=== PATIENT | female | born 1950 | race Caucasian/White ===

== ENCOUNTER → 2017-09-11 11:26 | Outpatient (CLI) | payer MEDICARE, MEDICAID, SELFPAY ==
[2017-09-11 15:23] LABS: Lyme Ab Screen Interpretation REF LAB
[2017-09-15 10:17] LABS: Lyme Scn Total Ab w/Rflx <0.91 ISR (0.00-0.90)
== END ==
PROVIDERS: Family Provider Family Medicine; PCP Family Medicine; Visit Provider Family Medicine
DX: T14.8XXA Other injury of unspecified body region, initial encounter (principal); W57.XXXA Bitten or stung by nonvenomous insect and other nonvenomous arthropods, initial encounter; Y93.9 Activity, unspecified; Y92.9 Unspecified place or not applicable
CPT/HCPCS: 36415; 86618

== ENCOUNTER 2017-12-30 15:00 | Outpatient (RCR) | payer MEDICARE, MEDICAID, SELFPAY ==
--- NOTE | 2017-12-21 16:55 | HP.PTEVAL_ITS ---
Patient's Visit Information CAESAR YBARRA is a 67 year old F referred to Physical Therapy by Tyrese Leal with a diagnosis of Back pain. Date of Evaluation: 12/21/17 Physical Therapist: Michael Gilbert, PT, - Visit Plan Frequency: 2-3x /Week Duration: 4 Weeks Plan: Postural edu, NADIR for T/S, stab ex's, ube, and HEP - Subjective Subjective: Pt reports she has had mid back pain for several years. Pt reports her pain is intermittent in nature, but is beginning to become more constant. Pt denies any radiating pain at this time. Pt reports no sleep difficulty at this time. Pt reports prolonged standing increases her pain. 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 Prolonged sitting like driving to [employer], also increases her pain. Pt reports she performs HEP of bridging and cobras, which helps to decrease her pain. Pt has not had any recent Dx testing performed. 3/10 at rest, 7/10 at worst (I twisted wrong) - Pain Mid back Pain Intensity (Out of 10): 3 Pain Intensity Range: 7 - Objective Neuro: B UE and LE sensation is WNL to light touch. B pat and bicepital reflex= 2/3. T/S ROM: ext min limited. All other ranges are WNL. Palpation: sig muscle guarding throughout the T/S. No obcious deformity present. MMT: B UE and LE are 5/5 throughout. Repeated movements: RFIS 10x2 - Goals Goal 1:: Decrease T/S pain x 50% to aid with increasing tolerance for ambulation Goal Time Frame: 4-6 Weeks Goal 2:: Increase T/S ROM x 1 grade to aid with IADL's Goal Time Frame: 4-6 Weeks Goal 3:: I with HEP Goal Time Frame: 4-6 Weeks - Rehabilitation Potential Physical Therapy Diagnosis: Pt has mid back pain and limited ROM secondary to a T/S disc derrangement Rehabilitation Potential: Good - Anticipated Interventions Patient/Client Instruction: Educate patient on: Condition, Plan of Care For the Purpose of:: To improve self management Therapeutic Exercise to Include: Strength training, Endurance training, Body mechanics, Postural training, Tevin Exercises For the Purpose of:: To decrease pain, To increase ROM, To improve muscle performance and motor function IF ES: Yes For the Purpose of:: To decrease pain Thank you for the opportunity to evaluate your patient. For Medicare and Medicare HMO plans, please review the plan of care and approve it. It will need to be FAXED BACK to us at [phone] for Medicare purposes. Please let me know if there are questions or concerns regarding this plan of care. Physician Brent clemente: Date:
--- NOTE | 2018-03-31 14:49 | HP.PT.NRP ---
HP - Discharge Summary (1) - Patient Information CAESAR YBARRA was seen in my office for initial evaluation on 12/21/17. The following Plan of Care was established for this patient: Initial Frequency: 2-3x /Week Initial Duration: 4 Weeks - Anticipated Interventions Patient/Client Instruction: Educate patient on: Condition, Plan of Care For the Purpose of:: To improve self management Therapeutic Exercise to Include: Strength training, Endurance training, Body mechanics, Postural training, Tevin Exercises For the Purpose of:: To decrease pain, To increase ROM, To improve muscle performance and motor function IF ES: Yes For the Purpose of:: To decrease pain This patient was last seen in our office . Pertinent comments regarding their Physical therapy will appear below: Pt was treated for one followup PT visit for her LBP on the date of 12/30/17. Pt cancelled her remaining appointments secondary to a family concern, and has not returned through todays date. Pt is discontinued at this time At this point I will be discontinuing this patient from physical therapy. I would be happy to see this patient again in the future if found appropriate by the physician. Thank you! Michael Gilbert, PT, ATC
== END 2017-12-30 19:00 | disposition home or self-care (01) ==
LOC: PT 15:00
PROVIDERS: Family Provider Family Medicine; PCP Family Medicine; Visit Provider Family Medicine
DX: M54.6 Pain in thoracic spine (principal)
CPT/HCPCS: 97110; 97161

== ENCOUNTER → 2018-01-22 12:35 | Outpatient (CLI) | payer MEDICARE, MEDICAID, SELFPAY ==
--- NOTE | 2018-01-22 12:39 | RAD_ITS ---
STUDY: X-RAY - RIGHT KNEE REASON FOR EXAM: Female, 67 years old. Pain. TECHNIQUE: 4 view(s) of the knee. COMPARISON: None. FINDINGS: Normal visualized distal femur. Normal visualized proximal tibia and fibula. Normal proximal tibiofibular articulation. There is no demonstrated fracture. Normal medial femorotibial compartment. Normal lateral femorotibial compartment. Normal patellofemoral articulation. There is no demonstrated joint effusion. The soft tissue structures are unremarkable. RAD/Knee 4 or More Views IMPRESSION: Normal x-ray examination of the knee. Electronically Signed: Jeff Siu MD at 23:59 EST , Service support ,
--- NOTE | 2018-01-22 12:39 | RAD_ITS ---
STUDY: X-RAY - LEFT KNEE REASON FOR EXAM: Female, 67 years old. Pain, no injury TECHNIQUE: 4 view(s) of the knee. COMPARISON: None. FINDINGS: Normal visualized distal femur. Normal visualized proximal tibia and fibula. Normal proximal tibiofibular articulation. Normal medial femorotibial compartment. There is mild degenerative arthrosis of the lateral femorotibial compartment. Normal patellofemoral articulation. The soft tissue structures are unremarkable. RAD/Knee 4 or More Views IMPRESSION: Mild lateral compartment osteophytosis, otherwise unremarkable left knee Electronically Signed: Figueroa Robles DO at 16:36 EST Tel , Service support ,
== END ==
PROVIDERS: Family Provider Family Medicine; PCP Family Medicine; Referring Provider Family Medicine; Visit Provider Family Medicine
DX: M25.561 Pain in right knee (principal); M25.562 Pain in left knee
CPT/HCPCS: 73564

== ENCOUNTER → 2018-02-19 08:22 | Outpatient (CLI) | payer MEDICARE, MEDICAID, SELFPAY ==
[2018-02-19 10:12] LABS: Absolute Lymphocyte Count 1.57 X10^3/ul (0.83-4.51); Absolute Neutrophil Count 3.5 X10^3/uL (2.0-7.7); Basophil# 0.03 X10^3/uL; Basophil% 0.5 % (0-1); Eosinophil# 0.31 X10^3/uL; Eosinophils% 5.3 % (0-5); Hematocrit 38.2 % (37-47); Hemoglobin 12.5 g/dl (12.0-15.0); Lymphocyte # 1.57 X10^3/ul (4.0); Mean Corp Hgb Conc 32.7 g/gl (32-36); Mean Corpuscular Hgb 30.7 pg (27.0-32.0); Mean Corpuscular Volume 93.9 fL (81-99); Mean Platelet Vol. 10.3 fl (6.2-12.0); Monocyte# 0.43 X10^3/uL; Monocyte% 7.4 % (0-10); Neutrophil # 3.48 X10^3/uL (2.7-7.7); Neutrophil % 59.8 % (47-70); Platelet Count 230 K/mm3 (150-450); RBC Distribution Width CV 11.9 % (11.6-14.6); Red Blood Count 4.07 M/mm3 (4.2-5.4); White Blood Count 5.8 K/mm3 (4.4-11.0)
[2018-02-19 10:13] LABS: POSITIVE COUNT NO; POSITIVE DIFFERENTIAL NO; POSITIVE MORPHOLOGY NO
[2018-02-19 10:47] LABS: Vitamin D,25 Hydroxy 48.2 ng/mL (29.95-100.01)
[2018-02-19 10:50] LABS: ALB/GLOB Ratio 1.1 RATIO (0.9-2.4); AST(SGOT) 14 U/L (15-37); Alanine Aminotransfer ALT/SGPT 20 U/L (13-56); Albumin, Serum 3.5 g/dL (3.2-5.0); Alkaline Phosphatase 43 U/L (45-117); Anion Gap 7 (5-15); BUN 25 mg/dL (7-18); BUN/Creat Ratio 36.1 RATIO (10-20); Calcium,Total 8.4 mg/dL (8.5-10.1); Chloride 107 mmol/L (98-107); Cholesterol 261 mg/dL (200); Creatinine, Serum 0.69 mg/dL (0.55-1.02); EST Glomerular Filtration Rate 90 mL/min (>60); Est Glom Filt Rate - Afr Amer 109 mL/min (>60); Globulin 3.2 g/dL (2.2-4.2); Glucose 75 mg/dL (74-106); High Density Lipoprotein 73 mg/dL; Potassium 4.1 mmol/L (3.5-5.1); Protein, Total 6.7 g/dL (6.4-8.2); Sodium Level 143 mmol/L (136-145); Thyroid Stim Hormone (TSH) 2.53 uIU/mL (0.358-3.74); Triglycerides 66 mg/dL; Very Low Density Lipoprotein 13 mg/dL (5-40)
== END ==
PROVIDERS: Family Provider Family Medicine; PCP Family Medicine; Referring Provider Family Medicine; Visit Provider Family Medicine
DX: G40.109 Localization-related (focal) (partial) symptomatic epilepsy and epileptic syndromes with simple partial seizures, not intractable, without status epilepticus (principal); E78.00 Pure hypercholesterolemia, unspecified; R53.83 Other fatigue; E55.9 Vitamin D deficiency, unspecified
CPT/HCPCS: 36415; 80053; 80061; 82306; 84443; 85025

== ENCOUNTER 2018-06-21 12:30 | Outpatient (RCR) | payer MEDICARE, MEDICAID, SELFPAY ==
--- NOTE | 2018-05-03 15:07 | HP.PTEVAL_ITS ---
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 BACK PAIN.. Date of Evaluation: 05/03/18 Physical Therapist: Erlinda Samuels PT, Cert MDT - Visit Plan Frequency: 2-3x /Week Duration: 4-6 Weeks Plan: POSTURE CORRECTION/STRENGTHENING, INSTRUCTION IN APPROPRIATE BODY MECHANICS AND ACTIVITY MODIFICATIONS. DLS STARTING WITH A NEUTRAL SPINE PROGRESSING ROM TOLERATED. GHISLAINE LE ROM, STRETCHING AND STRENGTHENING. HEP INSTRUCTION. 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 PLAY GUITAR IN [employer] - ABOUT 2.5 HOURS. Disability: NOT CURRENTLY BUT WAS ON DISABILY STARTING IN APPROX 1995 AT AGE 45 FOR BRAIN TUMORS. Present symptoms: MID BACK, LOW BACK, GHISLAINE HIPS RIGHT > LEFT, GHISLAINE KNEE PAIN LEFT > RIGHT. PATIENT DENIES GHISLAINE LE NUMBNESS AND TINGLING. (PATIENT REPORTS SHE HAS AN ORDER FOR HER BACK PAIN TOO - FROM DR. EZEKIEL WALLIS - SEE [facility] EMR LAST EPISODE OF CARE). Present since: ABOUT 10 YEARS AGO. 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 Pain Scale: BACK: WORST 6/10, LEAST 0/10. LEFT KNEE: WORST 5/10, LEAST 1/10. Currently: BACK: 4/10, LEFT KNEE: 2/10. Commenced as a result of: BACK PAIN AND KNEE ARE GETTING WORSENING. Symptoms at onset: BACK. Worse: STANDING, LIFTING, BENDING OVER TO DRY HAIR, BABYSITTING 5 MONTH OLD, GOING UP AND DOWN STAIRS WITH LAUNDRY BASKET, PLAYING THE GUITAR - SITTING. Better: LYING DOWN ON BACK. BEING IN THE CAR. ARCHING BACKWARDS. Disturbed sleep: NO. Previous history/Previous treatment: PHYSICAL THERAPY A FEW VISITS FALL 2018. NO CHIROPRACTOR. NO BACK OR KNEE SURGERY. NO BACK OR KNEE INJECTIONS. Coughing/sneezing/straining: NO. Gait: PATIENT REPORTS HER RIGHT FOOT DOESN'T COME UP FAR THE LEFT AND IT DRAGS AND GETS WORSE WITH FATIGUE. NO ASSISTIVE DEVICES CURRENTLY. Difficulty initiating urinatin: NO. Accidents: NO. Unexplained weight loss: NO. Imaging: MILD DEGENERATIVE ORTHROSIS LAT COMPARTMENT FEM-TIB LEFT KNEE. RIGHT KNEE - NORMAL. RIGHT HIP AND PELVIS - NORMAL 2016. NO BACK IMAGING. PMH: BRAIN TUMORS - TWO SURGERYIES WITH MOST RECENT BEING IN 2000 - RESIDUAL RIGHT FOOT AND LEG WEAKNESS. ON SEIZURE MEDICATION. BREAST CA 2010 TREATED WITH LUMPECTOMY, CHEMO AND RADIATION. PLOF (Prior Level of Function): WAS ABLE TO GO UP AND DOWN STEPS WITHOUT FEELING LIKE FALLING. 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 - Objective Sitting/Standing Posture: POOR. Lordosis: NORMAL. Lateral shift: NO. Relevant shift: N/A. Active Correction of posture: BETTER. Other Observations: INDEP GAIT INTO PT WITH A MILD LIMP ON THE RIGHT LE. Motor deficit:RIGHT LE WEAKNESS COMPARED TO LEFT. RIGHT HIP 4-/5, RIGHT KNEE EXT 4- /5, RIGHT KNEE FLEX 4/5, RIGHT ANKLE 3-/5. LLE - 5/5 EXCEPT HIP 4/5. Sensory deficit: NO. ROM deficit: TIGHT GHISLAINE HS AND GASTROC SOLEUS COMPLEX'S RIGHT > LEFT. Reflexes: HYPER REFLEXIC RIGHT LE AND ABSENT LLE DTR'S. Dural Signs: NEGATIVE GHISLAINE LE'S. Lumbar mvmt loss: flex - NIL. ext - MIN. R SG - MIN. L SG - MIN - PROVOKES GHISLAINE SIDE PAIN. Core strength: POOR. Palpation: MILD TENDERNESS WITH PALPATION OF THE MID THORACIC AND L45S1 REGIONS. - Goals Goal 1:: DECREASE C/O BACK AND GHISLAINE LE SX'S. Goal Time Frame: 4-6 Weeks Goal 2:: IMPROVE LIFTING, STANDING, SOCIAL LIFE, LEISURE AND HOMEMAKING FUNCTION.. Goal Time Frame: 4-6 Weeks Goal 3:: INSTRUCT IN PROPHYLAXIS Goal Time Frame: 4-6 Weeks - Rehabilitation Potential Rehabilitation Potential: Fair - Anticipated Interventions Patient/Client Instruction: Educate patient on: Condition, Plan of Care, Risk F actors, Benefits of Fitness Program For the Purpose of:: To improve self management Therapeutic Exercise to Include: Strength training, Body mechanics, Postural training, Flexibilty training, Active ROM, Dynamic Lumbar Stabilization For the Purpose of:: To decrease pain, To increase ROM, To improve muscle performance and motor function, To increase tolerance to activity/condition/position, To improve ability of physical actions for home/community/work/leisure Ultrasound (thermal/non thermal): Yes For the Purpose of:: To decrease pain, To increase ROM, To improve nutrient delivery to tissue Thank you for the opportunity to evaluate your patient. For Medicare and Medicare HMO plans, please review the plan of care and approve it. It will need to be FAXED BACK to us at [phone] for Medicare purposes. For Medicare only, by signing this I certify the plan of care. Please let me know if there are questions or concerns regarding this plan of care. Physician Signature: ___Date:
--- NOTE | 2018-05-31 15:08 | HP.PTREVAL_ITS ---
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 BACK PAIN.. Please see the progress note below for an update on the physical therapy plan of care! Subjective: PATIENT REPORTS SHE HAS BEEN SICK WITH THE FLU BUT STARTING TO GET BETTER. HASN'T BEEN ABLE TO DO HEP BUT WAS ABLE TO TAKE A WALK. PATIENT REPORTS HER BACK AND LEG SX'S ARE BETTER ACTUALLY SINCE BEING LESS ACTIVE DUE TO ILLNESS. STATES SHE KNOWS A LOT BETTER NOW HOW TO MANAGE HER BACK AND LEG SX'S WITH PROPER POSTURE CONTROL, BODY MECHANICS AND EXERCISE. PATIENT REPORT THE US TREATMENT LAST VISIT HELPED A LOT AND WOULD LIKE TO HAVE IT AGAIN. Objective/Function: EASED BACK INTO SOME EX'S TODAY. PATIENT IS STILL RECOVERING FROM BEING SICK AND NOT DOING MUCH FOR THE LAST TWO WEEKS. BLOWING NOSE AND COUGHING DURING SESSION. TOLERATED LIGHT EX WELL AND REALLY LIKED THE US. UPON EXAM TODAY FINDINGS ARE SIMILAR TO SHASHI BUT SHE IS REPORTING IMPROVED STRENGTH AND DECREASED PAIN. SHE WAS ALSO TOLERATING PRE WELL UNTIL SHE GOT THE FLU. WOULD RECOMMEND CONTINUED PT 2-3 TIMES A WEEK X 7 MORE VISITS TO HELP MEET SET GOALS. Plan Plan: CONT PT 2-3 TIMES A WEEK X 7 MORE SESSIONS FOR US NEEDED, POSTURE CORRECTION/STRENGTHENING, INSTRUCTION IN APPROPRIATE BODY MECHANICS AND ACTIVITY MODIFICATIONS. DLS STARTING WITH A NEUTRAL SPINE PROGRESSING ROM TOLERATED. GHISLAINE LE ROM, STRETCHING AND STRENGTHENING. HEP INSTRUCTION. PATIENT IS AGREEABLE WITH THIS POC. Goals Goal 1:: DECREASE C/O BACK AND GHISLAINE LE SX'S. Goal Time Frame: 4-6 Weeks Goal Progress: Progressing Goal 2:: IMPROVE LIFTING, STANDING, SOCIAL LIFE, LEISURE AND HOMEMAKING FUNCTION.. Goal Time Frame: 4-6 Weeks Goal Progress: Progressing Goal 3:: INSTRUCT IN PROPHYLAXIS Goal Time Frame: 4-6 Weeks Goal Progress: Progressing Anticipated Interventions Patient/Client Instruction: Educate patient on: Condition, Plan of Care, Risk Factors, Benefits of Fitness Program For the Purpose of:: To improve self management Therapeutic Exercise to Include: Strength training, Body mechanics, Postural training, Flexibilty training, Active ROM, Dynamic Lumbar Stabilization For the Purpose of:: To decrease pain, To increase ROM, To improve muscle performance and motor function, To increase tolerance to activity/ condition/position, To improve ability of physical actions for home/community/work/leisure Ultrasound (thermal/non thermal): Yes For the Purpose of:: To decrease pain, To increase ROM, To improve nutrient delivery to tissue Please do not hesitate to contact me at [phone] by phone or if you have questions or concerns regarding this new plan of care! Sincerely, Erlinda Samuels, PT, Cert MDT
--- NOTE | 2018-06-21 13:09 | HP.PTDCSUM ---
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 BACK PAIN. for a total of 12 visit(s). Discharge Date: 06/21/18 Please see the following information for a summary of their discharge status. - Subjective Subjective: PATIENT REPORTS HER BACK IS A LOT BETTER BUT SHE HAS BEEN HAVING SOME PROBLEMS WITH HER EYE. PATIENT REPORTS THAT IF SHE DOES THE EX'S AND REMEMBERS TO MOVE RIGHT HER BACK IS LIKE NEW. ABLE TO GO KAYAKING RECENTLY AND DID WELL. I AM SO HAPPY YOU COULD HELP MY BACK. - Pain MID BACK Pain Intensity (Out of 10): 0 LOW BACK Pain Intensity (Out of 10): 0 HIPS Pain Intensity (Out of 10): 0 KNEES Pain Intensity (Out of 10): 0 RIGHT WRIST Pain Intensity (Out of 10): 0 - Overall Improvement % Improvement: 80 - Objective Objective/Function: PATIENT HAS DONE REALLY GOOD WITH PT THIS EPISODE OF CARE AND ALL GOALS HAVE BEEN MET. SHE IS INDEP WITH A HEP FOR CONTINUED IMPROVEMENT AND AGREEABLE TO DISCHARGE AT THIS POINT. Motor deficit:RIGHT LE WEAKNESS COMPARED TO LEFT. RIGHT HIP 4-/5, RIGHT KNEE EXT 4-/5, RIGHT KNEE FLEX 4/5, RIGHT ANKLE 3-/5. LLE - 5/5 EXCEPT HIP 4/5. (NO CHANGE SINCE EVAL). Sensory deficit: NO. ROM deficit: TIGHT GHISLAINE HS AND GASTROC SOLEUS COMPLEX'S RIGHT > LEFT. Dural Signs: NEGATIVE GHISLAINE LE'S. Lumbar mvmt loss: flex - NIL. ext - MIN. R SG - MIN. L SG - MIN. PATIENT DENIES PAIN WITH LUMBAR ROM TESTING. Core strength: POOR. Palpation: NO TENDERNESS WITH PALPATION OF THE MID THORACIC OR LUMBAR SPINE REGIONS TODAY BUT PATIENT REPORTS DIFFERENT FEELING MID THORACIC SPINE. - Goals Goal 1:: DECREASE C/O BACK AND GHISLAINE LE SX'S. Goal Progress: Goal Met Goal 2:: IMPROVE LIFTING, STANDING, SOCIAL LIFE, LEISURE AND HOMEMAKING FUNCTION.. Goal Progress: Goal Met Goal 3:: INSTRUCT IN PROPHYLAXIS Goal Progress: Goal Met - Plan Plan: D/C TO HEP - D/C Information If there are questions or concerns regarding this patient's physical therapy, please feel free to call me at [phone]. Thank you for the referral of this patient. Sincerely, Erlinda Samuels PT, Cert MDT
== END 2018-06-21 19:00 | disposition home or self-care (01) ==
LOC: PT 12:30
PROVIDERS: Family Provider Family Medicine; PCP Family Medicine; Referring Provider Family Medicine; Visit Provider Family Medicine
DX: M17.12 Unilateral primary osteoarthritis, left knee (principal); M62.81 Muscle weakness (generalized)
CPT/HCPCS: 97035; 97110; 97162; 97530

== ENCOUNTER → 2018-10-07 | Outpatient (CLI) | payer MEDICARE, MEDICAID, SELFPAY ==
--- NOTE | 2018-10-07 11:06 | RAD_ITS ---
STUDY: X-RAY - RIGHT HUMERUS REASON FOR EXAM: Female, 67 years old. Mid humeral pain x1 year TECHNIQUE: 3 view(s) of the humerus. COMPARISON: None. FINDINGS: Normal visualized humerus. There is no demonstrated fracture or osseous destructive process. There is no demonstrated soft tissue abnormality. RAD/Humerus min 2 Views IMPRESSION: Normal x-ray examination of the humerus. Electronically Signed: Joe Schmidt MD at 11:30 EDT , Service support ,
== END | disposition home or self-care (01) ==
LOC: MTRAD 11:05
PROVIDERS: Family Provider Family Medicine; PCP Family Medicine; Referring Provider Family Medicine; Visit Provider Family Medicine
DX: M79.621 Pain in right upper arm (principal)
CPT/HCPCS: 73060

== ENCOUNTER 2019-04-14 11:00 | Outpatient (RCR) | payer MEDICARE, OTHER, SELFPAY ==
--- NOTE | 2019-03-23 15:48 | HP.PTEVAL_ITS ---
Patient's Visit Information CAESAR YBARRA is a 68 year old F referred to Physical Therapy by MARJORIE GARNETT with a diagnosis of Right Leg Weakness. Date of Evaluation: 03/23/19 Physical Therapist: Cassie De Los Santos DPT - Visit Plan Frequency: 2x /Week Duration: 3 Weeks Plan: Focus on LE and core strength/stabilization- Focus on HEP - Subjective Findings: Patient reports that she had a brain tumor and it sat on the nerve to the right leg. She drags her right foot and catches when she walks. Tumor was removed in 2000 benign. She feels the right leg is getting weaker and she needs some strength training. Her knees are also not as good as they use to be. No pain associated with the weakness just does not want to trip. She is worried about uneven surfaces. Has not had any falls. Is not doing any consis tent exercise but she is babysitting her 1 year old granddaughter- works around the house and has dogs. Would like to get back into yoga. Sometimes her balance is off but most just when she catches the toe. Only feels that she catches the toe occasionally not daily. Is on a seizure medication- so they are trying to get it figured out due to side effects (tired, side effects). Does have stairs at home- is more careful when she is carrying things. 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 No protocol followed, breast cancer 2011 (remission). Meds: Meloxicam, Kepra, Depacot. - Objective Posture: FH, RS, increased kyphosis- can correct but does not maintain. Gait: no deviation noted. Stairs: asc/desc recip with 1 HR- decreased control. HR/TR: good. SLS:Left: 10 sec Right: 7 seconds. Tandem stance: 10 sec each. Head turns vert/horiz x30 feet without LOB. ROM: WFL. Strength: core: fair minus. Right Ankle: 4+/5, Knee: 4+/5, Hip: 4/5 throughout. Flex: HS: moderate, Gastroc: moderate. Specail Test: dural signs: right positive - Goals Goal 1:: Patient will be I with HEP and progression Goal Time Frame: 4-6 Weeks Goal 2:: Patient will SLS for 15 sec without LOB bilaterally Goal Time Frame: 4-6 Weeks Goal 3:: Patient will 5/5 strength in LE Goal Time Frame: 4-6 Weeks Goal 4:: Patient will maintain proper t/o tx session to demo increased core s/s. Goal Time Frame: 4-6 Weeks - Rehabilitation Potential Physical Therapy Diagnosis: Patient presents with hypermobility- she has decreased strength, flex and muscular endurance leading to decreased balance and difficulty with ADL's Rehabilitation Potential: Fair - Anticipated Interventions Patient/Client Instruction: Educate patient on: Benefits of Fitness Program Therapeutic Exercise to Include: Strength training, Endurance training, Balance training, Agility training, Body mechanics, Postural training, Flexibilty training, Gait and locomotor training, Dynamic Lumbar Stabilization For the Purpose of:: To improve muscle performance and motor function Thank you for the opportunity to evaluate your patient. For Medicare and Medicare HMO plans, please review the plan of care and approve it. It will need to be FAXED BACK to us at [phone] for Medicare purposes. For Medicare only, by signing this I certify the plan of care. Please let me know if there are questions or concerns regarding this plan of care. Physician Signature: Date:
--- NOTE | 2019-04-14 11:25 | HP.PTDCSUM ---
HP - PT D/C Summary It has been my pleasure to treat CAESAR YBARRA under orders from MARJORIE GARNETT, for the diagnosis of Right Leg Weakness for a total of 6 visit(s). Discharge Date: Please see the following information for a summary of their discharge status. - Subjective Subjective: Patient reports that the right leg is better. She has better balance and is doing better stepping up- she does not have to lift her leg into the truck anymore. It seems stronger and she feels the legs are equal. She feels that she can continue her exercises at home. - Overall Improvement % Improvement: 100 - Objective Objective/Function: Posture: FH, RS, increased kyphosis- can correct but does not maintain. Gait: no deviation noted. Stairs: asc/desc recip with 1 HR- good control. HR/TR: good. SLS:Left: 15 sec Right: 20 seconds. Tandem stance: 10 sec each. Head turns vert/horiz x30 feet without LOB. ROM: WFL. Strength: core: fair minus. Right Ankle: 5/5, Knee: 5/5, Hip: 4+/5 throughout. Flex: HS: moderate, Gastroc: moderate. Specail Test: dural signs: right positive - Goals Goal 1:: Patient will be I with HEP and progression Goal Progress: Goal Met Goal 2:: Patient will SLS for 15 sec without LOB bilaterally Goal Progress: Goal Met Goal 3:: Patient will 5/5 strength in LE Goal Progress: Progressing Goal 4:: Patient will maintain proper t/o tx session to demo increased core s/s. Goal Progress: Progressing - Plan Plan: Discharge to I HEP - D/C Information If there are questions or concerns regarding this patient's physical therapy, please feel free to call me at [phone]. Thank you for the referral of this patient. Sincerely, BLESSING ReardonT
== END 2019-04-14 19:00 | disposition home or self-care (01) ==
LOC: PT 11:00
PROVIDERS: Family Provider Family Medicine; PCP Family Medicine
DX: R53.1 Weakness (principal)
CPT/HCPCS: 97110; 97162; 97164

== ENCOUNTER → 2019-05-02 | Outpatient (CLI) | payer MEDICARE, OTHER, SELFPAY ==
[2019-05-02 10:44] LABS: ALB/GLOB Ratio 1.1 RATIO (0.9-2.4); AST(SGOT) 15 U/L (15-37); Alanine Aminotransfer ALT/SGPT 26 U/L (13-56); Albumin, Serum 3.5 g/dL (3.2-5.0); Alkaline Phosphatase 44 U/L (45-117); Anion Gap 3 (5-15); BUN 22 mg/dL (7-18); BUN/Creat Ratio 27.3 RATIO (10-20); Calcium,Total 9.3 mg/dL (8.5-10.1); Chloride 107 mmol/L (98-107); Cholesterol 246 mg/dL (200); Creatinine, Serum 0.81 mg/dL (0.55-1.02); EST Glomerular Filtration Rate 75 mL/min (>60); Est Glom Filt Rate - Afr Amer 91 mL/min (>60); Globulin 3.1 g/dL (2.2-4.2); Glucose 85 mg/dL (74-106); High Density Lipoprotein 71 mg/dL; Protein, Total 6.6 g/dL (6.4-8.2); Sodium Level 141 mmol/L (136-145); Triglycerides 116 mg/dL; Very Low Density Lipoprotein 23 mg/dL (5-40)
== END | disposition home or self-care (01) ==
LOC: MTLAB 08:44
PROVIDERS: PCP Family Medicine; Referring Provider Family Medicine
DX: E78.00 Pure hypercholesterolemia, unspecified (principal); G40.109 Localization-related (focal) (partial) symptomatic epilepsy and epileptic syndromes with simple partial seizures, not intractable, without status epilepticus
CPT/HCPCS: 36415; 80053; 80061

== ENCOUNTER → 2019-07-20 | Outpatient (CLI) | payer MEDICARE, OTHER, SELFPAY ==
[2019-07-20 17:45] LABS: Hemoglobin 12.3 g/dL (12.0-15.0); Mean Corp Hgb Conc 31.5 g/dL (32-36); Mean Corpuscular Hgb 30.9 pg (27.0-32.0); Mean Platelet Vol. 10.6 fl (6.2-12.0); Platelet Count 227 K/mm3 (150-450); RBC Distribution Width CV 12.1 % (11.6-14.6); RBC Distribution Width SD 43.5 fl (35.1-43.9); Red Blood Count 3.98 M/mm3 (4.2-5.4); White Blood Count 4.9 K/mm3 (4.4-11.0)
[2019-07-20 18:03] LABS: ALB/GLOB Ratio 1.1 RATIO (0.9-2.4); AST(SGOT) 29 U/L (15-37); Alanine Aminotransfer ALT/SGPT 39 U/L (13-56); Albumin, Serum 3.6 g/dL (3.2-5.0); Alkaline Phosphatase 121 U/L (45-117); Anion Gap 6 (5-15); BUN 19 mg/dL (7-18); BUN/Creat Ratio 27.2 RATIO (10-20); Calcium,Total 8.7 mg/dL (8.5-10.1); Chloride 106 mmol/L (98-107); EST Glomerular Filtration Rate 89 mL/min (>60); Est Glom Filt Rate - Afr Amer 107 mL/min (>60); Globulin 3.2 g/dL (2.2-4.2); Glucose 93 mg/dL (74-106); Potassium 3.8 mmol/L (3.5-5.1); Protein, Total 6.8 g/dL (6.4-8.2); Sodium Level 141 mmol/L (136-145)
[2019-07-20 19:26] LABS: Valproic Acid (Depakene) Level 75 ug/mL (50-100)
== END | disposition home or self-care (01) ==
LOC: MTLAB 15:54
PROVIDERS: Psychiatry & Neurology Sleep Medicine; PCP Family Medicine
DX: G40.919 Epilepsy, unspecified, intractable, without status epilepticus (principal); R53.83 Other fatigue; Z86.011 Personal history of benign neoplasm of the brain
CPT/HCPCS: 36415; 80053; 80164; 85027

== ENCOUNTER → 2020-01-19 07:00 | Outpatient (CLI) | payer MEDICARE, OTHER, SELFPAY ==
--- NOTE | 2020-01-19 09:07 | TELEMED_ITS ---
[facility] Tele[facility] has confirmed receipt of a request for visit. This document confirms receipt of the order initiating the consult. To find the results of the consultation, please view the patient's reports for the scanned Telemed Consult.
== END ==
PROVIDERS: PCP Family Medicine; Referring Provider Psychiatry & Neurology Sleep Medicine; Visit Provider Psychiatry & Neurology Sleep Medicine
DX: G40.909 Epilepsy, unspecified, not intractable, without status epilepticus (principal); D32.9 Benign neoplasm of meninges, unspecified
CPT/HCPCS: 95819

== ENCOUNTER → 2020-04-03 12:21 | Outpatient (CLI) | payer MEDICARE, OTHER, SELFPAY ==
--- NOTE | 2020-04-03 12:24 | RAD_ITS ---
STUDY: X-RAY - RIGHT SHOULDER REASON FOR EXAM: Right shoulder pain for several years. TECHNIQUE: 4 view(s) of the shoulder. COMPARISON: Radiographs of the right humerus 10/07/2018. FINDINGS: Normal glenohumeral articulation. Normal acromioclavicular joint. Normal acromion. Normal humeral head and visualized proximal humerus. The soft tissue structures are unremarkable. Normal visualized pulmonary apex. RAD/Shoulder min 2 Views IMPRESSION: Normal x-ray examination of the right shoulder. Electronically Signed: Klever Araujo MD at 14:32 EST Tel , Service support ,
== END ==
PROVIDERS: PCP Family Medicine; Referring Provider Family Medicine; Visit Provider Family Medicine
DX: S46.011D Strain of muscle(s) and tendon(s) of the rotator cuff of right shoulder, subsequent encounter (principal)
CPT/HCPCS: 73030

== ENCOUNTER → 2020-04-13 12:54 | Outpatient (CLI) | payer MEDICARE, OTHER, SELFPAY ==
--- NOTE | 2020-04-13 13:08 | MRI_ITS ---
STUDY: MRI RIGHT SHOULDER REASON FOR EXAM: Right shoulder pain and decreased range of motion. TECHNIQUE: Standardized fat and water weighted pulse sequences were obtained in all 3 orthogonal planes. COMPARISON: Radiographs 04/03/2020. FINDINGS: There is supraspinatus tendinosis and a small linear high grade partial-thickness tear of the articular surface of the distal anterior supraspinatus tendon (fat-suppressed T2 coronal image 13). Normal infraspinatus tendon. Normal subscapularis tendon. Normal teres minor tendon. Normal supraspinatus muscle. Normal infraspinatus muscle. Normal subscapularis muscle. Normal teres minor muscle. Normal glenohumeral articulation. There is mild cystic change of the greater tuberosity. Normal biceps labral complex. Normal intracapsular long biceps tendon. Normal labrum. Normal capsulo- ligamentous complex. There is no substantial acromioclavicular arthrosis. There is a Type II morphology (curved), with a neutral orientation. There is a small volume of subacromial-subdeltoid bursal fluid. Normal visualized coracohumeral and coracoacromial ligaments. There is a lipoma in the posterior deltoid muscle (T2 sagittal images 6, 7) measuring approximately 3.3 cm in length. Normal trapezius muscle. MRI/Upper Ext Joint Only(Routine) IMPRESSION: Small partial-thickness tear and tendinosis of the supraspinatus tendon. Mild subacromial-subdeltoid bursitis. 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 Electronically Signed: Klever Araujo MD at 14:19 EST Tel , Service support ,
== END ==
PROVIDERS: PCP Family Medicine; Referring Provider Family Medicine; Visit Provider Family Medicine
DX: M79.621 Pain in right upper arm (principal)
CPT/HCPCS: 73221

== ENCOUNTER → 2020-05-29 09:11 | Outpatient (CLI) | payer MEDICARE, OTHER, SELFPAY ==
[2020-05-22 08:36] LABS: Absolute Lymphocyte Count 1.94 X10^3/uL (0.83-4.51); Absolute Neutrophil Count 2.3 X10^3/uL (2.0-7.7); Basophil# 0.03 X10^3/uL; Basophil% 0.6 % (0-1); Eosinophils% 4.1 % (0-5); Hematocrit 40.2 % (37-47); Lymphocyte # 1.94 X10^3/ul (4.0); Lymphocyte % 39.4 % (19-41); Mean Corp Hgb Conc 32.3 g/dL (32-36); Mean Corpuscular Hgb 31.3 pg (27.0-32.0); Mean Corpuscular Volume 96.6 fL (81-99); Monocyte# 0.47 X10^3/uL; Monocyte% 9.6 % (0-10); NRBC Flagged by Analyzer 0 % (0-5); Neutrophil # 2.27 X10^3/uL (2.7-7.7); Neutrophil % 46.1 % (47-70); Platelet Count 224 K/mm3 (150-450); RBC Distribution Width CV 11.9 % (11.6-14.6); RBC Distribution Width SD 42.3 fl (35.1-43.9); Red Blood Count 4.16 M/mm3 (4.2-5.4); White Blood Count 4.9 K/mm3 (4.4-11.0)
[2020-05-22 09:14] LABS: AST(SGOT) 21 U/L (15-37); Alanine Aminotransfer ALT/SGPT 22 U/L (13-56); Albumin, Serum 3.4 g/dL (3.2-5.0); Alkaline Phosphatase 57 U/L (45-117); Anion Gap 4 (5-15); BUN 20 mg/dL (7-18); BUN/Creat Ratio 25.8 RATIO (10-20); Calcium,Total 8.8 mg/dL (8.5-10.1); Chloride 107 mmol/L (98-107); Cholesterol 158 mg/dL (200); Creatinine, Serum 0.77 mg/dL (0.55-1.02); EST Glomerular Filtration Rate 79 mL/min (>60); Est Glom Filt Rate - Afr Amer 95 mL/min (>60); Globulin 3.3 g/dL (2.2-4.2); Glucose 86 mg/dL (74-106); High Density Lipoprotein 83 mg/dL; Potassium 4.3 mmol/L (3.5-5.1); Protein, Total 6.7 g/dL (6.4-8.2); Sodium Level 143 mmol/L (136-145); Triglycerides 50 mg/dL; Very Low Density Lipoprotein 10 mg/dL (5-40)
--- NOTE | 2020-05-29 16:54 | PCM.TILTTABL ---
- Staff Staff: Jessie Bustillo - Summary Pre Test Resting HR: 82 Pre Test Resting BP: 151/90 Minimum Test HR: 0 Maximum Test HR: 108 Minimum Test BP: 0/0 Maximum Test BP: 151/90 Reason for Test Termination: Syncope Physician Tilt Table Report - Patient's Physicians Primary Care Physician: Tyrese Barcenas Indications/Diagnosis: History of syncope and dizziness the last was in November 2019 Procedure Comments: The patient presented in the noninvasive lab in the postabsorptive state. Informed consent was obtained. An EKG was performed which demonstrated normal sinus rhythm with a rate of 70 bpm resting blood pressure was 124/73 mmHg. The patient was then placed in the head upright tilt position and monitored at 70 degrees for 20 minutes. Patient maintained normal blood pressure and heart rate response. The patient was then placed back in the recumbent position and administered 0.4 mg of sublingual nitroglycerin. The patient was then placed once again in the head upright tilt position. Approximately 4 minutes after this procedure patient lost consciousness for approximately 25 seconds. And appears to have had an 8-second pause which responded to sternal rub. Patient was noted to be bradycardic and then subsequently regained sinus mechanism. The final blood pressure was 114/72 mmHg with a pulse rate of 78 bpm. Summary: Abnormal tilt table test with significant vasodepressive and vasovagal syncope noted with 8-second pause.
[2020-05-29 16:59] VITALS: BP 0/0; BP 151/90
== END ==
PROVIDERS: PCP Family Medicine; Referring Provider Family Medicine; Visit Provider Family Medicine
DX: E78.00 Pure hypercholesterolemia, unspecified (principal); R55 Syncope and collapse
CPT/HCPCS: 36415; 80053; 80061; 85025; 93660; J7040; A4216

== ENCOUNTER → 2020-06-08 11:35 | Outpatient (CLI) | payer MEDICARE, OTHER, SELFPAY | PROVIDERS: PCP Family Medicine; Referring Provider Family Medicine; Visit Provider Family Medicine | DX: R63.0 Anorexia (principal) | CPT/HCPCS: 36415; 84443 ==

== ENCOUNTER 2020-06-19 14:00 | Outpatient (RCR) | payer MEDICARE, OTHER, SELFPAY ==
--- NOTE | 2020-04-18 09:54 | HP.PTEVAL ---
Patient's Visit Information CAESAR YBARRA is a 69 year old F referred to Physical Therapy by Dr. Tyrese Barcenas MD with a diagnosis of R RCT. Date of Evaluation: 04/18/20 Physical Therapist: BLESSING RileyT, OCS, CSCS - Visit Plan Frequency: 2x /Week Duration: 4-6 Weeks Plan: 2x/week for 3-6 weeks for. 1. US nonthermal to R supraspinatus insertion. 2. manaual grade 1 g-h joint mobs and pec stretches. 3. RC and scap/postural strength to HEP. 4. Monitor activity modification - Subjective Maria Guadalupe been having pain in upper right arm. Had MRI and has R RCT. It has been hurting for 2.5 years and not improving. Was given exercises for the cuff for stretches and ROM whcih hurt. Onset was insidious. Pain gets up to 4/10 with stretching. Uncomfortable even at rest. Sleeps OK but cannot roll on R side or it will wake her up. Retired. Activities: R handed and feels weaker trying to open jars. Dressing is not aproblem. Reaching up can be painful. Vaccuming is hard. Reaching behind to wash back is hard. Stopped stretches as they hurt. - Pain R shoulder Pain Intensity (Out of 10): 1 Pain Intensity Range: 0, 4 - Objective Posture is forward head and anterior shoulders. Looking down to send messages on phone with much flexion in neck. Cervical aROM:WFL nd without pain. tender R supraspinatus insertion and biceps tendon moderately. L UE AAROM and strength WFL adn 4/5 no pain. R UE pain at end range of IR,ER, adn flexion/abduction but full aROM. 2/3 biceps and triceps reflexes. Sensation wNL to gross light touch. Strength R shoulder external rotation 3+ adn pain, IR 4- and pain, flex/abd 3+ and painful. + HK and neer impingement test R. - ext rotation lag test, - drop arm test. - Goals Goal 1:: Pain at rest 0/10 and no greater than 1/10 overall Goal Time Frame: 4-6 Weeks Goal 2:: Pt report 80% overall improvement in condition Goal Time Frame: 4-6 Weeks Goal 3:: sleep withotu waking at night due to pain Goal Time Frame: 4-6 Weeks Goal 4:: Pt able to vaccuum adn reach Over head without a problem Goal Time Frame: 4-6 Weeks - Rehabilitation Potential Physical Therapy Diagnosis: R RCT, likely impingement Rehabilitation Potential: Fair - Anticipated Interventions Patient/Client Instruction: Educate patient on: Condition, Plan of Care For the Purpose of:: To decrease pain, To increase tolerance to activity/condition/position Therapeutic Exercise to Include: Strength training, Postural training, Flexibilty training, Passive ROM, Active ROM, Scapular Strength/Stabilization For the Purpose of:: To decrease pain, To increase tolerance to activity/condition/position, To improve ability of physical actions for home/community/work/leisure Manual Therapy Techniques to Include: Mobilization, Soft tissue mobilization For the Purpose of:: To decrease pain Cryotherapy (ice pack, ice massage): Yes Ultrasound (thermal/non thermal): Yes - nonthermal R shoulder. For the Purpose of:: To decrease pain, To decrease swelling/inflammation, To increase tolerance to activity/condition/position Thank you for the opportunity to evaluate your patient. For Medicare and Medicare HMO plans, please review the plan of care and approve it. It will need to be FAXED BACK to us at [phone] for Medicare purposes. For Medicare only, by signing this I certify the plan of care. Please let me know if there are questions or concerns regarding this plan of care. Physician Signature: Date:
--- NOTE | 2020-05-24 11:58 | HP.PTREVAL ---
Dr. Tyrese Barcenas MD, It has been my pleasure to treat CAESAR YBARRA over the last 10 visits for R RCT. Please see the progress note below for an update on the physical therapy plan of care! Subjective: Feel better. Less pain. Easier to move. No trouble sleeping. Pain this week pain 0-2/10, worse if sleeps on that side. Reaching into top cupboard is still painful but uses other arm or gets on stool. HEP daily strength and stretches. No f/u scheduled. Wants to do HEP and f/u in 3 weeks. Objective/Function: Full aROM without pain except end range of flexion today tranisently 1/10. strength is 4 in R ext rotationa nd flexion, and slight discomfort with flexion, abd and IR and extension are 4+ and painfree. Overall progressing nicely and feels ready to continue on her own at home. Plan Plan: Vended BTB for progression. Pt to cotninue on her own at home for 3 weeks and call if problems, otherwise f/u in 3 weeks for rechecka dn d/c or progress ex. enusre meeting goals and reaching OH without pain. Goals Goal 1:: Pain at rest 0/10 and no greater than 1/10 overall Goal Time Frame: 4-6 Weeks Goal Progress: Progressing Goal 2:: Pt report 80% overall improvement in condition Goal Time Frame: 4-6 Weeks Goal Progress: Goal Met Goal 3:: sleep withotu waking at night due to pain Goal Time Frame: 4-6 Weeks Goal Progress: Progressing Goal 4:: Pt able to vaccuum adn reach Over head without a problem Goal Time Frame: 4-6 Weeks Goal Progress: vaccuum OK, OH can hurt. Anticipated Interventions Patient/Client Instruction: Educate patient on: Condition, Plan of Care For the Purpose of:: To decrease pain, To increase tolerance to activity/condition/position Therapeutic Exercise to Include: Strength training, Postural training, Flexibilty training, Passive ROM, Active ROM, Scapular Strength/Stabilization For the Purpose of:: To decrease pain, To increase tolerance to activity/condition/position, To improve ability of physical actions for home/community/work/leisure Manual Therapy Techniques to Include: Mobilization, Soft tissue mobilization For the Purpose of:: To decrease pain Cryotherapy (ice pack, ice massage): Yes Ultrasound (thermal/non thermal): Yes - nonthermal R shoulder. For the Purpose of:: To decrease pain, To decrease swelling/inflammation, To increase tolerance to activity/condition/position Please do not hesitate to contact me at [phone] by phone or if you have questions or concerns regarding this new plan of care! Sincerely, Alessio Cleveland, DPT, OCS, CSCS
--- NOTE | 2020-06-19 14:21 | HP.PTDCSUM ---
It has been my pleasure to treat CAESAR YBARRA referred by Dr. Tyrese Barcenas MD, with the diagnosis of R RCT for a total of 11 visit(s). Discharge Date: 06/19/20 Please see the following information for a summary of their discharge status. Subjective: Shoulder doing pretty good. Some soreness but has been very active with shoulder walking dog on leash. Carrying laundry up and down the steps adn reaching up. Gets some sorenss but mobility is very good. Pain is to 1/10 with reaching and overdoing it. Can walk dog without pain. Sleep is OK. Stilla voids sleeping on r side. Saw doctor adn shoulder is healing. Feels like she could do this on her own now. R shoulder Pain Intensity (Out of 10): 1 % Improvement: 80 Objective/Function: Full aROM just some pain with cross body adduction transiently. strength is 4/5 in R shoulder except ext rotation which is 4 but slightly uncomfortable. Overall doing very well adn managing it well. Goal 1:: Pain at rest 0/10 and no greater than 1/10 overall Goal Progress: Goal Met Goal 2:: Pt report 80% overall improvement in condition Goal Progress: Goal Met Goal 3:: sleep withotu waking at night due to pain Goal Progress: Goal Met Goal 4:: Pt able to vaccuum adn reach Over head without a problem Goal Progress: Goal Met Plan: d/c to HEP If there are questions or concerns regarding this patient's physical therapy, please feel free to call me at [phone]. Thank you for the referral of this patient. Sincerely, Alessio Cleveland, DPT, OCS, CSCS
== END 2020-06-19 19:00 | disposition home or self-care (01) ==
LOC: PT 14:00
PROVIDERS: PCP Family Medicine; Referring Provider Family Medicine; Visit Provider Family Medicine
DX: M75.111 Incomplete rotator cuff tear or rupture of right shoulder, not specified as traumatic (principal)
CPT/HCPCS: 97035; 97110; 97161; 97164; 97530

== ENCOUNTER → 2020-12-17 16:20 | Outpatient (CLI) | payer MEDICARE, OTHER, SELFPAY ==
--- NOTE | 2020-12-17 16:22 | MRI_ITS ---
STUDY: MRI BRAIN WITH AND WITHOUT CONTRAST REASON FOR EXAM: Female, 70 years old patient presents for follow-up of a meningioma. No new complaints. TECHNIQUE: Standardized multiplanar fat and water weighted pulse sequences were obtained. 13 ml of IV Dotarem was administered for the contrast portion of the examination. COMPARISON: MRI of the brain dated 07/21/2016. FINDINGS: There is mild cerebral atrophy with widening of the extra-axial spaces and ventricular dilatation. There are a limited number of small white matter hyperintensities, distributed throughout the deep white matter tracts of the cerebral hemispheres, consistent with mild chronic white matter ischemic changes. There is encephalomalacia present within the posterior left frontal lobe probably related to previous surgery. There is abnormal signal within the adjacent brain and white matter probably related to gliosis. There is no evidence for recent intracranial ischemia or other cause of cytotoxic edema on diffusion weighted imaging (DWI). Normal T2* images of the brain without demonstrated susceptibility artifact. There is no demonstrated hemosiderin stain. Normal bilateral basal ganglia. Normal thalami. There is no extra-axial fluid accumulation. Normal flow voids within the major intracranial circulation suggesting patency by spin echo criteria. Normal venous enhancement. There is no enhancing intra-axial or extra-axial abnormality. Normal sella turcica, pituitary gland, infundibular stalk, optic chiasm and hypothalamus. Normal tectal plate and pineal gland. Normal midbrain, link and medulla. Normal cerebellum. There are large basal cisterns. Normal bilateral temporal bones. Normal bilateral internal auditory canals. There is an ocular lens implant the left globe. Normal right globe. The intraorbital contents otherwise are normal. Normal visualized paranasal sinuses. The patient has had a bifrontal and parietal craniotomy. This is unchanged since the previous study. Normal visualized soft tissue structures. Normal visualized upper cervical spine. MRI/Brain W/WO Contrast IMPRESSION: 1. Involutional changes of the brain, as described above. 2. Unchanged postoperative appearance of the brain without MR evidence to suggest recurrence of meningioma. Electronically Signed: Ary Leal MD at 5:28 EDT , Service support ,
[2020-12-17 16:41] LABS: CREATININE FINGERSTICK < 0.6 mg/dL (0.55-1.02); EGFR FINGERSTICK > 60.0000 mL/min (>60)
== END ==
PROVIDERS: PCP Family Medicine; Visit Provider Family Medicine
DX: D32.0 Benign neoplasm of cerebral meninges (principal)
CPT/HCPCS: 70553; A9575

== ENCOUNTER → 2021-01-01 15:41 | Outpatient (CLI) | payer MEDICARE, OTHER, SELFPAY ==
[2021-01-01 18:31] LABS: Erythrocyte Sedimentation Rate 3 mm/hr (0-30)
[2021-01-02 13:05] LABS: Syphilis Antibodies Non-reactive
[2021-01-03 16:09] LABS: RNP Ab <0.2 AI (0.0-0.9); SJOGREN'S Anti-SS-A test < 0.2 AI (0.0-0.9); SJOGREN'S Anti-SS-B test < 0.2 AI (0.0-0.9); Smith Ab <0.2 AI (0.0-0.9)
[2021-01-04 08:15] LABS: Anti-Nuclear Antibody Test Negative (.); Anti-dsDNA Ab <1 IU/mL (0-9)
[2021-01-07 19:07] LABS: Complement C3 106 mg/dL (82-167); Cytoplasmic Ab (C-ANCA) <1:20 titer (Neg:<1:20); QNTFERON TB Mitogen Value > 10.00 IU/mL (.); QNTFERON TB Nil Value 0.01 IU/mL (.); QNTFERON TB1+ Ag Value 0.02 IU/mL (.); QNTFERON TB2+ Ag Value 0.01 IU/mL (.)
[2021-01-07 19:30] LABS: Angiotensin Convert Enzyme 93 U/L (14-82); Perinuclear Ab (P-ANCA) <1:20 titer (Neg:<1:20); QNTIFERON TB Positive Criteria Negative (Negative)
== END ==
PROVIDERS: PCP Family Medicine; Referring Provider Ophthalmology; Visit Provider Ophthalmology
DX: H15.101 Unspecified episcleritis, right eye (principal)
CPT/HCPCS: 36415; 82164; 85652; 86038; 86160; 86225; 86235; 86256; 86431; 86480; 86780

== ENCOUNTER → 2021-01-07 11:45 | Outpatient (CLI) | payer MEDICARE, OTHER, SELFPAY ==
[2021-01-07 15:43] LABS: Vitamin D,25 Hydroxy 105.2 ng/mL
== END ==
PROVIDERS: Referring Provider Nurse Practitioner Family; Visit Provider Nurse Practitioner Family
DX: R53.83 Other fatigue (principal); R51.9 Headache, unspecified
CPT/HCPCS: 36415; 82306; 97140

== ENCOUNTER 2021-01-24 11:30 | Outpatient (RCR) | payer MEDICARE, OTHER, SELFPAY ==
--- NOTE | 2020-12-10 14:38 | HP.PTEVAL ---
Patient's Visit Information CAESAR YBARRA is a 70 year old F referred to Physical Therapy by Dr. Jessie Klein MD with a diagnosis of CHRONIC HEADACHES. Date of Evaluation: 12/10/20 Physical Therapist: Emmett Love, PT, Cert MDT, OCS - Visit Plan Frequency: 2x /Week Duration: 6 Weeks Plan: PT INTERVETIONS MANUAL THERAPY STM,CERVICAL TRACTION ,MHP/CP ,POTURAL EX'S - Subjective This 70 y/o female presents to physical therapy with chronic CORREA . Patient has ~ 1 1/2 year, noticed CORREA symptoms after dental work last year. 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 Patient plan to MRI next week to h/o tumors and r/o. Patient located frontal anterior ,cephalud. Patient MD low dose of ant-depressant. Denies paresthesia/tingling. Patient does have some personal stresses. Aggravating factors tired . Alleviating factors none. Patient sleeping okay but has hard time falling to sleep. PMH: SEIZURES,BREAST CA ,BRAIN BINIGN TUMORS. Patient goals to have no CORREA. SOCIAL: partner. VOCATION: retired - Pain Bilateral Head Pain Intensity (Out of 10): 3 Pain Intensity Range: 10, N/A Comment: frontal - Objective POSTURE: mild forward posture. NEURO: intact reflexes C5-6-7 03/18. PALPATION: tender UT/levator/occiput /paraspinals. AROM BUE: WFL. MMT: 4/5 grossly. CERVICAL ROM: flexion min ,extension min ,lateral flexion mod loss, rotation mod retraction min tight. UPPER CERVICAL SPINE ROM: min/mod loss - Special Tests C/S Radiculapathy - Left Upper limb tension test: Negative C/S Radiculapathy - Right Upper limb tension test: Negative C/S Radiculapathy - Left Spurlings: Negative C/S Radiculapathy - Right Spurlings: Negative C/S Radiculapathy - Left Cervical distraction: Negative C/S Radiculapathy - Right Cervical distraction: Negative Sharp Abisai: Negative Vertebral Artery Test: Negative Alar Ligament Test: Negative Cervical Sitting: Protrusion - Mechanical Response: No effect Cervical Sitting: Protrusion - Symptoms During Testing: No effect Cervical Sitting: Protrusion - Symptoms After Testing: No effect Cervical Sitting: Retraction - Mechanical Response: No effect Cervical Sitting: Retraction - Symptoms During Testing: Decreases Cervical Sitting: Retraction - Symptoms After Testing: Better Cervical Sitting: Retraction-Extension - Mechanical Response: No effect Cerv Sitting: Retraction-Extension - Symptoms During Testing: No effect Cerv Sitting: Retraction-Extension - Symptoms After Testing: No effect Cervical Sitting: Sidebend Right - Mechanical Response: No effect Cervical Sitting: Sidebend Right - Symptoms During Testing: No effect Cervical Sitting: Sidebend Right - Symptoms After Testing: No effect Cervical Sitting: Sidebend Left - Mechanical Response: No effect Cervical Sitting: Sidebend Left - Symptoms During Testing: No effect Cervical Sitting: Sidebend Left - Symptoms After Testing: No effect Cervical Sitting: Rotation Right - Mechanical Response: No effect Cervical Sitting: Rotation Right - Symptoms During Testing: No effect Cervical Sitting: Rotation Right - Symptoms After Testing: No effect Cervical Sitting: Rotation Left - Mechanical Response: No effect Cervical Sitting: Rotation Left - Symptoms During Testing: No effect Cervical Sitting: Rotation Left - Symptoms After Testing: No effect Cervical Sitting: Flexion - Mechanical Response: No effect Cervical Sitting: Flexion - Symptoms During Testing: No effect Cervical Sitting: Flexion - Symptoms After Testing: No effect - Balance/Special Test Scores Oswestry Neck Score: 20 - Goals Goal 1:: Patient to be I with HEP for CORREA Goal Time Frame: 4-6 Weeks Goal 2:: Diminish CORREA by 75% improvement to improve function Goal Time Frame: 4-6 Weeks Goal 3:: Patient improve cervical ROM for function of recovery with decrease CORREA Goal Time Frame: 4-6 Weeks Goal 4:: Patient to decrease neck owesrty by 5 points to improve QOL. Goal Time Frame: 4-6 Weeks - Rehabilitation Potential Physical Therapy Diagnosis: This patient has chronic CORREA with symptoms constant frontal with soft tissue tightness thus benefit from skilled PT Rehabilitation Potential: Good - Anticipated Interventions Patient/Client Instruction: Educate patient on: Condition, Plan of Care For the Purpose of:: To decrease pain, To increase ROM, To improve muscle performance and motor function, To improve ability to perform ADL's, To increase tolerance to activity/condition/position, To improve ability of physical actions for home/community/work/leisure, To improve health of tissue, To decrease soft tissue restriction, To increase flexibility/ROM Therapeutic Exercise to Include: Strength training, Postural training, Flexibilty training, Active ROM For the Purpose of:: To decrease pain, To increase ROM, To improve muscle performance and motor function, To improve ability to perform ADL's, To increase tolerance to activity/condition/position, To improve performance and independence with ADL's, To improve ability of physical actions for home/community/work/leisure, To improve health of tissue, To decrease soft tissue restriction, To increase flexibility/ROM, To prevent re-injury Manual Therapy Techniques to Include: Soft tissue mobilization Comment: DISRACTION For the Purpose of:: To decrease pain, To increase ROM, To improve nutrient delivery to tissue, To increase oxygenation perfusion, To improve health of tissue, To decrease soft tissue restriction, To increase flexibility/ROM Cryotherapy (ice pack, ice massage): Yes Thermo therapy (hot pack): Yes For the Purpose of:: To decrease pain, To increase ROM Thank you for the opportunity to evaluate your patient. For Medicare and Medicare HMO plans, please review the plan of care and approve it. It will need to be FAXED BACK to us at [phone] for Medicare purposes. For Medicare only, by signing this I certify the plan of care. Please let me know if there are questions or concerns regarding this plan of care. Physician Signature: Date:
--- NOTE | 2021-04-03 08:48 | HP.PTDCSUM ---
It has been my pleasure to treat CAESAR YBARRA referred by Dr. Jessie Klein MD, with the diagnosis of CHRONIC HEADACHES for a total of 11 visit(s). Discharge Date: Please see the following information for a summary of their discharge status. Subjective: Doing okay no CORREA Bilateral Head Pain Intensity (Out of 10): 0 % Improvement: 90 Objective/Function: MET GAO Goal 1:: Patient to be I with HEP for CORREA Goal 2:: Diminish CORREA by 75% improvement to improve function Goal 3:: Patient improve cervical ROM for function of recovery with decrease CORREA Goal 4:: Patient to decrease neck owesrty by 5 points to improve QOL. Plan: D/C If there are questions or concerns regarding this patient's physical therapy, please feel free to call me at [phone]. Thank you for the referral of this patient. Sincerely, Emmett Love, PT, Cert MDT, OCS Balance/Gait/Functional tests - Balance/Special Test Scores Oswestry Neck Score: 0
== END 2021-01-24 19:00 | disposition home or self-care (01) ==
LOC: PT 11:30
PROVIDERS: PCP Family Medicine; Referring Provider Family Medicine; Visit Provider Family Medicine
DX: R51.9 Headache, unspecified (principal)
CPT/HCPCS: 97110; 97140; 97162

== ENCOUNTER → 2021-07-04 | Outpatient (CLI) | payer MEDICARE, OTHER, SELFPAY ==
[2021-07-04 12:13] LABS: Hematocrit 37.5 % (37-47); Hemoglobin 12.5 g/dL (12.0-15.0); Mean Corp Hgb Conc 33.3 g/dL (32-36); Mean Corpuscular Hgb 31.6 pg (27.0-32.0); Mean Corpuscular Volume 94.9 fL (81-99); Mean Platelet Vol. 9.9 fl (6.2-12.0); Platelet Count 218 K/mm3 (150-450); RBC Distribution Width CV 11.9 % (11.6-14.6); RBC Distribution Width SD 41.9 fl (35.1-43.9); Red Blood Count 3.95 M/mm3 (4.2-5.4); White Blood Count 3.7 K/mm3 (4.4-11.0)
[2021-07-04 12:35] LABS: AST(SGOT) 24 U/L (15-37); Alanine Aminotransfer ALT/SGPT 23 U/L (13-56); Albumin, Serum 3.2 g/dL (3.2-5.0); Alkaline Phosphatase 58 U/L (45-117); Anion Gap 4 (5-15); BUN 13 mg/dL (7-18); BUN/Creat Ratio 19.4 RATIO (10-20); Calcium,Total 8.8 mg/dL (8.5-10.1); Chloride 110 mmol/L (98-107); Cholesterol 154 mg/dL (200); Creatinine, Serum 0.67 mg/dL (0.55-1.02); EST Glomerular Filtration Rate 92 mL/min (>60); Est Glom Filt Rate - Afr Amer 112 mL/min (>60); Globulin 3.2 g/dL (2.2-4.2); Glucose 82 mg/dL (74-106); High Density Lipoprotein 80 mg/dL; Potassium 4.3 mmol/L (3.5-5.1); Protein, Total 6.4 g/dL (6.4-8.2); Sodium Level 144 mmol/L (136-145); Triglycerides 54 mg/dL; Very Low Density Lipoprotein 11 mg/dL (5-40)
== END | disposition home or self-care (01) ==
PROVIDERS: PCP Family Medicine; Referring Provider Nurse Practitioner Family; Visit Provider Nurse Practitioner Family
DX: E78.00 Pure hypercholesterolemia, unspecified (principal)
CPT/HCPCS: 36415; 80053; 80061; 85027

== ENCOUNTER 2021-08-08 05:58 | Day surgery (SDC) | payer MEDICARE, OTHER, SELFPAY ==
[2021-08-01 12:10] LABS: Absolute Neutrophil Count 1.8 X10^3/uL (2.0-7.7); Basophil# 0.02 X10^3/uL; Basophil% 0.5 % (0-1); Eosinophil# 0.12 X10^3/uL; Eosinophils% 3.3 % (0-5); Hemoglobin 13.4 g/dL (12.0-15.0); Mean Corp Hgb Conc 32.7 g/dL (32-36); Mean Corpuscular Hgb 31.4 pg (27.0-32.0); Mean Platelet Vol. 10.5 fl (6.2-12.0); Monocyte# 0.24 X10^3/uL; Monocyte% 6.6 % (0-10); NRBC Flagged by Analyzer 0 % (0-5); Neutrophil # 1.77 X10^3/uL (2.7-7.7); Neutrophil % 48.3 % (47-70); Platelet Count 224 K/mm3 (150-450); RBC Distribution Width CV 11.7 % (11.6-14.6); Red Blood Count 4.27 M/mm3 (4.2-5.4); White Blood Count 3.7 K/mm3 (4.4-11.0)
[2021-08-01 12:19] LABS: Partial Thromboplast Time 29.6 Seconds (24.1-36.2)
[2021-08-01 12:30] LABS: Anion Gap 4 (5-15); BUN 15 mg/dL (7-18); BUN/Creat Ratio 20.3 RATIO (10-20); Calcium,Total 8.9 mg/dL (8.5-10.1); Chloride 106 mmol/L (98-107); Creatinine, Serum 0.74 mg/dL (0.55-1.02); EST Glomerular Filtration Rate 83 mL/min (>60); Est Glom Filt Rate - Afr Amer 100 mL/min (>60); Glucose 95 mg/dL (74-106); Potassium 4.2 mmol/L (3.5-5.1); Sodium Level 142 mmol/L (136-145)
--- NOTE | 2021-08-01 12:36 | EKG12_ITS ---
Test Reason : PREOP Blood Pressure : / mmHG Vent. Rate : 088 BPM Atrial Rate : 088 BPM P-R Int : 142 ms QRS Dur : 068 ms QT Int : 338 ms P-R-T Axes : 060 063 -39 degrees QTc Int : 408 ms Normal sinus rhythm Nonspecific T wave abnormality Abnormal ECG Confirmed by SUSHANT GARCÍA, LUZ ([id number]), news videotape editor CRISSY NUR ([id number]) on 08/02/2021 10:34:04 A M Referred By: Manny Callaway Confirmed By:RICKY CANCHOLA MD
--- NOTE | 2021-08-01 13:50 | RAD_ITS ---
INDICATION: PRE-OP EXAMINATION/TECHNIQUE: X-RAY - XR Chest 2 Views COMPARISON: None. FINDINGS: LINES/DEVICES: None. LUNGS: No consolidation, edema or effusion. No pneumothorax. MEDIASTINUM AND CARDIOVASCULAR STRUCTURES: Cardiac silhouette not enlarged. Central airways and mediastinal contour are unremarkable. BONES AND SOFT TISSUES: Unremarkable. RAD/Chest PA and Lateral IMPRESSION: No radiographic evidence of acute cardiopulmonary disease. Electronically Signed: Jose Guadalupe Porras MD at 0:58 EDT ,
[2021-08-08] VITALS (7 sets, daily range): BP systolic 130–159; BP diastolic 64–93; PULSE 64–75; RESP 14–16; TEMP 36.1–36.7; O2SAT 93–100; BMI 24.4
[2021-08-08] MEDS: Lactated Ringers 1,000 ML 15 ML IV (06:45)
[2021-08-08] MEDS: Cefazolin 2 GM in 0.9% Normal Saline 100 ML IV (07:24)
--- NOTE | 2021-08-08 07:30 | RAD_ITS ---
STUDY: INTRAOPERATIVE FLUOROSCOPY TECHNIQUE: The examination was performed with referring physician in attendance. Under fluoroscopic observation, fluoroscopic images were obtained. Radiologist was not present for the study. Radiologist did not perform the procedure. This dictation is for documentation of the radiation dosage only. There is no interpretation of the images. TOTAL NUMBER OF IMAGES: 1 COMPARISON: None RADIATION DOSE: 0.55 mGy FLUOROSCOPY TIME: 28.9 seconds REASON FOR EXAM: 1ST CARPAL METACARPAL JOINT ARTHROPLASTY Female, 70 years old. FINDINGS: Virgilina noted in the head of the first metacarpal bone. K wire visualized in this region. RAD/Hand 2 Views IMPRESSION: Fluoroscopic assistance images were obtained. Dictation for documentation purposes only. Electronically Signed: Michael Scales MD at 15:28 EDT ,
[2021-08-08] MEDS: Lidocaine 1% (50 ml mdv) 50 ML Vial (09:20)
[2021-08-08] MEDS: Bupivacaine Mpf 0.5% 30 ML VIAL (09:20)
--- NOTE | 2021-08-08 09:26 | OP.PCM_ITS ---
Report of Operation Date of Procedure: 08/08/21 Description of Surgical Findings:: Preoperative diagnosis: 1. Right first carpal metacarpal joint arthritis 2. Right thumb metacarpophalangeal joint hyperextension instability Postoperative diagnosis: 1. Right first carpal metacarpal joint arthritis 2. Right thumb metacarpophalangeal joint hyperextension instability Procedures: 1. Right thumb trapeziectomy with ligament reconstruction tendon interposition with flexor carpi radialis tendon transfer 2. 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 Vang Complications: None Drains: None Estimated blood loss: 50 cc Urinary output: None measured IV fluids: 1 L crystalloid Specimens: None Surgical implants: Arthrex 4 mm x 10 mm Bio-Tenodesis screw, Arthrex Simona corkscrew FT Surgical indications: This is a 70-year-old female seen in the outpatient setting diagnosed with a right basal joint arthritis of the first CMC. She failed nonoperative management. She had a hyperextension deformity of the metacarpal phalangeal joint of the thumb of approximately 40 degrees with a stable endpoint. Right first carpometacarpal joint arthroplasty in the form trapeziectomy with ligament reconstruction tendon interposition with flexor carpi radialis tendon transfer and right first metacarpophalangeal joint volar plate advancement capsulodesis. The risk, benefits, alternatives to procedure were reviewed with patient at length in the outpatient setting and he agreed to proceed. Risks included but were not limited to bleeding, infection, loss of life or limb, risk of anesthesia, subsidence of metacarpal base, persistent instability of the MCP joint, persistent pain, need for additional surgery, stiffness, loss of hand function, neurovascular injury. Patient expressed understanding wish to proceed with surgery. Description of procedure: Patient was seen in preoperative holding area. She was identified by name, medical record number, date of . The operative extremity was marked with a surgical marker. We confirmed informed consent with the patient and all questions were answered to his satisfaction. At time of her procedure, patient was brought to the operative suite and positioned supine a standard operating table. All bony prominences were well- padded. General anesthesia was induced and endotracheal tube placed. The right upper extremity was then prepped for surgery by first applying a well-padded pneumatic tourniquet to the right forearm. The hand table attached to the right side of the table. We spun the bed 90 degrees. The right upper extremity was then prepped and draped in normal, sterile orthopedic fashion. 2 g Ancef was administered prior to incision by anesthesia staff. We performed a timeout at this point confirming side, site, and operation to be performed. No concerns voiced and elected to proceed. We first exsanguinated the right upper extremity with a an Esmarch bandage. Tourniquet was inflated to 250 mmHg were made up for 75 minutes. I first made my incision overlying the anatomic snuffbox of the right dorsal first CMC. Incision was carried sharply through skin and subcutaneous tissue. Superficial veins were cauterized. Superficial sensory branches from the radial nerve were protected and retracted. We bluntly dissected through the fascia down to the level of the dorsal branch of the radial artery. I retracted this dorsally after cauterizing capsular branches from the radial artery using bipolar cautery. We then identified the dorsal radial capsule of the first CMC. This was split in line with the incision and elevated subperiosteally. The trapezium was then freed from capsular attachment sharply with 15 blade scalpel and subsequently with a McGlamry elevator. We were able to free the trapezium circumferentially and excised the trapezium en bloc. This was examined and had severe degenerative changes on the distal articular surface at the first CMC. The trapezoid was examined and appeared unremarkable. The FCR was identified in the wound. The wound was copiously irrigated with normal saline and any loose pieces of cartilage were debrided. I then turned my attention to the flexor carpi radialis and the right mid to distal forearm. A transverse incision approximately 5 mm was made overlying the flexor carpi radialis tendon. Superficial vein was identified and cauterized with bipolar cautery. I was then able to bluntly dissect through the tendon sheath down the level of the tendon. A Ragnell retractor was placed underneath the tendon and the tendon was pulled out of the wound. Sharply transected the tendon at the level of the incision. I then used a right angle hemostat to retrieve the flexor carpi radialis tendon from the distal wound. I split the flexor carpi radialis tendon in line with its fibers to obtain 2 distinct limbs. One limb was tagged in whipstitch fashion with a #2 Ethibond for transfer for our planned tendon transfer. I then prepared our bone tunnel for transfer. A drill pin was utilized to drill dorsal radial to ulnar ulnar across the base of the first metacarpal. My entry point was approximately 1 cm from the articular surface. This was directed to the insertion point of the cahto beak ligament. Proper trajectory was confirmed. FCR was protected through the drilling process with a McGlamry elevator. A cannulated drill bit was then placed over top of the drill pin and drilled bicortically. A nitinol wire was used to pass the suture tag to the FCR tendon slip through the bone tunnel retrieving out the dorsoradial portion. I then applied a abduction force across the base the first metacarpal and placed it with my index finger in the space of the former trapezium with appropriate tension. My physician assistant certified pulled some traction on the thumb. I pulled traction on the slip of the FCR and the Arthrex Bio- Tenodesis screw was then placed to secure the tendon. Minimal amount of shuck and no significant subsidence was noted after the tendon was secured. I then placed a running stitch through both slips of the tendon securing it to the palmar first CMC wrist capsule. Suture was tightened achieving an accordion configuration of the remaining FCR tendon to achieve an interposition graft. I then examined the MCP joint. She continued to have approximately 40 degrees of hyperextension deformity. I made the decision to proceed with volar plate capsulodesis of the first metacarpophalangeal joint. I planned a Janet type incision overlying the MCP joint. Full-thickness skin flaps were developed. Neurovascular bundles were protected. A1 minna was encountered and split in line with the incision. Flexor pollicis longus tendon was retracted ulnarly. Volar plate and sesamoids were identified. I elevated a rectangular flap from the head of the first metacarpal of the volar plate and sesamoids. This gain access to the joint. Tissue was very mayer and appeared amenable for capsulodesis. I then brought in C arm and utilized fluoroscopic guidance to pin the MCP joint and 30 degrees of flexion. I then utilized a vendor supplied K wire to drill for a Simona corkscrew FT suture anchor which was then passed into the bone. Tension was applied with excellent purchase in the bone. I then tensioned the volar plate and performed a simple mattress suture through the volar plate to perform the capsulodesis. Attention was ensured after time a single knot. Additional knots were then tied over top. Final fluoroscopic images were obtained. There was no significant subsidence or shuck at the metacarpal base. We then deflated the tourniquet. Hemostasis was achieved with bipolar cautery. I closed the first CMC capsule in watertight fashion with an 3-0 Ethibond suture. Subcutaneous layers were reapproximated with 3-0 Vicryl in a running subcuticular 4?0 Monocryl. The volar thumb incision was closed in interrupted horizontal mattress fashion with 4-0 nylon suture. A field block was administered with 30 cc 0.5% plain Marcaine: 1% lidocaine plain 50: 50 mixture. Dermabond was used to finally reapproximate skin closed with subcuticular suture.. Sterile compression dressing was applied. A well-padded thumb spica fiberglass splint was then applied. Patient tolerated procedure well without apparent complication. She was subsequently extubated and transferred to PACU in stable condition. Need for skilled physician assistant certified: Shannon Cervantes PA-C was critical to the outcome of the case. During the course of the procedure the physician physician assistant certified played a vital role. Her intimate knowledge of my steps in the procedure aided in safe and expedient completion of the procedure. The PA played a vital role in positioning particularly in obtaining the appropriate positioning. The PA was also vital in the retraction of soft tissues during the exposure and projecting vital structures. . She also played a vital role in closure with my direct supervision as well as splint application. Post Operative Plan: Weightbearing: Nonweightbearing operative extremity Antibiotics: Ancef 2 g x 1 dose preoperatively DVT Prophylaxis: Aspirin 81 mg twice daily to start tomorrow, early mobilization Kelly: None Dressing: Maintain splint, keep it clean dry and intact until follow-up X-Rays: 2 weeks postop in the office Pain Medication: Oxycodone prescription provided in the office Follow-up: 2 weeks post-operatively with me in the office
--- NOTE | 2021-08-08 09:26 | PCM.DC ---
Discharge Instructions Follow Up Care Test Results: Test results from this visit will be discussed in further detail at your follow-up appointment, if applicable. Discharge Plan Admission Primary Reason for Your Visit: Right thumb LRTI with MCP volar plate capsulodesis Attending Provider: Manny Callaway Primary Care Provider: Juan Jose Perez Instructions Additional Instructions / Restrictions: Follow preprinted instructions from your surgeons office Discharge Orders/Prescriptions Prescriptions: No Action milk thistle 500 MG capsule 1,000 mg PO DAILY RF: 0 lysine [L-Lysine] 500 MG tablet 500 mg PO PRN PRN (Reason: Rash/Topical Irritation) RF: 0 atorvastatin 40 mg tablet 40 mg PO QHS RF: 0 ketorolac 0.5 % drops 1 drp RIGHT EYE PRN PRN (Reason: Pain) RF: 0 flaxseed oil 1,000 mg Capsule 1,000 mg PO DAILY RF: 0 divalproex 500 mg tablet extended release 24 hr 1,000 mg PO QHS RF: 0 Fish Oil Capsule 1,250 mg PO DAILY RF: 0 Soothe Lubricant 0.6-0.6 % Dropperette 1 drp OPHTHALMIC (EYE) PRN PRN (Reason: Pain) RF: 0 Probiotic 10 billion cell Capsule 10,000 mmu cells PO DAILY RF: 0 PreserVision AREDS-2 250-90-40-1 mg Capsule 1 tab PO BID RF: 0 calcium 26-vit D3-magnesium 15 167 mg calcium- 1.67 mcg-83 mg Capsule 1 cap PO DAILY RF: 0 Referrals / Follow Up: Manny Callaway DO [STAFF PHYSICIAN] - Within 2 Weeks Juan Jose Perez MD [Primary Care Provider] - Disposition Disposition (needs filled in before D/C Order can be placed): Home, Self Care
[2021-08-08] MEDS: oxyCODONE 5 MG Tablet 10 MG PO (11:12)
== END 2021-08-08 12:22 | disposition home or self-care (01) ==
LOC: SDC 05:59 → AC 06:00
PROVIDERS: Anesthesiology; PCP Family Medicine; Referring Provider Student in an Organized Health Care Education/Training Program; Visit Provider Student in an Organized Health Care Education/Training Program
PROC: (CPT 25447; principal; 2021-08-08 07:15)
DX: M25.341 Other instability, right hand (principal); M18.11 Unilateral primary osteoarthritis of first carpometacarpal joint, right hand; Z87.891 Personal history of nicotine dependence; R03.0 Elevated blood-pressure reading, without diagnosis of hypertension; Z79.899 Other long term (current) drug therapy; E78.00 Pure hypercholesterolemia, unspecified; R06.02 Shortness of breath
CPT/HCPCS: 25310; 25447; 26516; 01810; 36415; 71046; 73120; 73130; 76000; 80048; 85025; 85730; 93005; C1713; J7120; J2405

== ENCOUNTER 2021-12-04 16:30 | Outpatient (RCR) | payer MEDICARE, OTHER, SELFPAY ==
--- NOTE | 2021-10-07 16:45 | HP.OTEVAL_ITS ---
Patient's Visit Information CAESAR YBARRA is a 70 year old F, referred to Occupational Therapy by Dr. 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 Date of Evaluation: 10/07/21 Occupational Therapist: Irma Gilbert, OTR/[place], CHT - Subjective This 70 year old female was seen for OT eval with dx of right unilateral primary osteoarthrosis of cmc - pt has sx on August 23 2021 with a cmc arthroplasty. pt arrives to OT s/p 6 weeks and 2 days s/p- pt was casted for 4 weeks following sx- had cast removed on september 30 2021. pt states she has swelling- denies numbness. pt states she needs assistance with 75% of her ADLs- she enjoys gardening and would like to return to this and performing her ADls at a PLOF. - ADLs Dressing: Pants, Socks Fasteners: Tie shoes, Buttons, Zippers, Snaps Eating: Bring food to mouth, Cut food Bathing: Handle washcloth & soap, Squeeze shampoo bottle Toileting: Manage clothing Comments: pt lives with partner who is helping her with all ADLs and IADLs. - Pain right hand 5 Pain Intensity Range: 5 - ROM CMC: right 10* left 0 MP: right 25* left 35* IP: right 0 left 75 - Strength Supervisor Uranium Processing: right NT left 55# Lateral Pinch: right NT left 2# Tripod Pinch: right NT left unable ( sign. mp hyper ext indicating mp instability ) Strength Comments: pt reports left thumb cmc arthroplasty- about 10 years ago (pt demo left MP hyper ext) noted z thumb deformity with resistive testing. - Edema PIP: right MF 6.7 left 6.1 Other: MCP right 20cm left 19cm - Sensation Sensation Comments: denies - Quick DASH-Disab of Arm,Shoulder& Hand Quick DASH Score: 77.2725 - Goals Goal:100% adherence to protocol: Yes Comment: Dr. Callaway protocol for MCP capsulodesis with carpometacarpal Goal:Daily scar massage when approriate: Yes Goal:Supervisor Uranium Processing/Pinch strength at least 75% of unaffected hand: Yes Goal:No pain with affected hand use: Yes Goal:PIP Circumferences equal to unaffected hand: Yes Goal:Full use of affected hand in daily activities including: Yes Goal:Decrease scar hypersensitivity: Yes - Rehabilitation General Assessment: pt arrives 6 weeks s/p from Dr. Callaway protocol for MCP capsulodesis with carpometacarpal - pt demo with use of soft thumb spica brace- noted digit edema - limited ROM of wirst/thumb and fingers- pt requiring assistance from her partner for ADLs and IADLs. pt would benefit from skilled OTR/L,CHT services 2-3x week for 6 weeks to rehabilitate pt from right CMC arthroplasty reconstruction. Today therapist ed. pt on short arch wrist ROM, supported CMC MP and IP flex - ed. pt on NO hyper-ext of MPJ (pt demo understanding) therapist will follow Dr. Callaway's protocol - pt demo understanding and agree to POC. Rehabilitation Potential: Good - Anticipated Interventions A/AAROM/PROM, Strengthening, Edema Control, Scar Care, Triggerpoint Release, Modalities, Orthoses, Joint Protection/Energy Conservation, Fine Motor Coord/[place], Education re assistive Equipment, Education re Diagnosis, Home Program - Visit Plan Frequency: 2-3x /Week Duration: 6 Weeks General Plan: Dr. Callaway protocol for MCP capsulodesis with carpometacarpal arthroplasty. s/p week 4 begin wrist ROM exercise. Fabricate thumb spica orthosis- keep IPJ free. Position wrist in 15* extension. Maintain Neutral radiaoulnar deviation. Place thumb in comfortable position of about 40*-50* palmar abduction keeping fingers free. -encourage finger ROM. Week 6 remove pin. Re-form orthosis so that MCPJ is held in 20* to 30* flexion. Begin motion of MCP joint with orthosis off but with exercise off but with exercise orthosis (finger of 8 or oval 8 orthosis) in place IPJ should be allowed full motion and MCPJ should be allowed full flexion. Avoid stretching the volar plat or stretching the thumb into abduction at the web space. Week 8. wean MCPJ from thumb spica orthosis. Fabricate hand-based orthosis to hold MCPJ in 20* flexion (or use orthosis that was employed as exercise orthosis for daily ac tivities) choice depends on activity level of pt. Week 10. Begin light isometric strengthening exercises 2x/day within pain tolerance. Practice gripping abound objects of various circumferences in various positions with small orthosis for MCPJ in place. Week 12 use hand-based orthosis only for high-demand activities. Week 16 d/c use of orthosis if MCPJ is stable at 0* or greater in resting position (NO Hyperextension) TEXT: Thank you for the opportunity to evaluate your patient. For Medicare and Medicare HMO plans, please review the plan of care and approve it. It will need to be FAXED BACK to us at [phone] for Medicare purposes. Please let me know if there are questions or concerns regarding this plan of care. Physician Signature: Date:
--- NOTE | 2021-11-11 14:19 | HP.OTREVAL ---
Dr. 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 Please see the progress note below for an update on the occupational therapy plan of care! Subjective: pt arrives to session - states is pleased with her progress Objective/Function: right quality control inspector 12# left is 50#. right CMC 5*. right MP 35*. right IP 30*. opposition to LF PIP crease. pt demo good return of wrist and thumb ROM-has hypertrophic scar that limits grasp due to sensitivity- therapist gave elastomer for pt to use at night to soften scar- pt demo understanding of scar mtg-. pt currently lifting 4# free wts working on biceps/shoulder strength to gain overall right UE strength Plan Frequency: 2x /Week Duration: 3 Weeks Plan: will continue with PRE as pt tolerates Goals - Goals Patient Goals: Use Hand/Wrist/Arm Normally Again, Be More Independent in ADLS Goal:100% adherence to protocol: Yes Goal:Daily scar massage when approriate: Yes Goal:Education And Outreach Coordinator/Pinch strength at least 75% of unaffected hand: Yes Goal:No pain with affected hand use: Yes Goal:PIP Circumferences equal to unaffected hand: Yes Goal:Full use of affected hand in daily activities including: Yes Goal:Decrease scar hypersensitivity: Yes Anticipated Interventions Anticipated Interventions: A/AAROM/PROM, Strengthening, Edema Control, Scar Care, Triggerpoint Release, Modalities, Orthoses, Joint Protection/Energy Conservation, Fine Motor Coord/[place], Education re assistive Equipment, Education re Diagnosis, Home Program Please do not hesitate to contact me at [phone] by phone or if you have questions or concerns regarding this new plan of care! Sincerely, Irma Gilbert, OTR/L, CHT
--- NOTE | 2021-12-04 17:03 | HP.OTDCSUM_ITS ---
It has been my pleasure to treat CAESAR YBARRA under orders from Dr. 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 Please see the following information for a summary of their discharge status. % Improvement: 90 Objective/Function: right assistant quality manager strength is 25# this increase from 10#. left assistant quality manager strength 45#. right lateral pinch 2#. right tripod pinch 5#. cmc ext 5*. cmc flex 5*. mp 40. IP 35*. opposition to PIP of LF. pt is working on flat hand hand. pt demo with good stable ROM. scar hyper trophy at mp incision- Patient Goals: Use Hand/Wrist/Arm Normally Again, Be More Independent in ADLS Goal:100% adherence to protocol: Yes Goal:Daily scar massage when approriate: Yes Goal:Rnfa/Pinch strength at least 75% of unaffected hand: Yes Goal:No pain with affected hand use: Yes Goal:PIP Circumferences equal to unaffected hand: Yes Goal:Full use of affected hand in daily activities including: Yes Goal:Decrease scar hypersensitivity: Yes Plan: D/C Discharge Comments: pt was seen for 17 OT visits following at right CMC arthroplasty- pt made great gains If there are questions or concerns regarding this patient's occupational therapy, please fell free to call me at [phone]. Thank you for the referral of this patient. Sincerely, Irma Gilbert, OTR/L, CHT
== END 2021-12-04 19:00 | disposition home or self-care (01) ==
LOC: OT 16:30
PROVIDERS: PCP Family Medicine; Referring Provider Student in an Organized Health Care Education/Training Program; Visit Provider Student in an Organized Health Care Education/Training Program
DX: M18.11 Unilateral primary osteoarthritis of first carpometacarpal joint, right hand (principal)
CPT/HCPCS: 97035; 97110; 97140; 97166; 97530

== ENCOUNTER → 2022-02-20 | Outpatient (CLI) | payer MEDICARE, OTHER, SELFPAY ==
[2022-02-20 15:16] LABS: Hematocrit 39.7 % (37-47); Hemoglobin 13.1 g/dL (12.0-15.0); Mean Corpuscular Hgb 31.6 pg (27.0-32.0); Mean Corpuscular Volume 95.9 fL (81-99); Mean Platelet Vol. 10.3 fl (6.2-12.0); Platelet Count 171 K/mm3 (150-450); RBC Distribution Width CV 12.1 % (11.6-14.6); RBC Distribution Width SD 42.7 fl (35.1-43.9); Red Blood Count 4.14 M/mm3 (4.2-5.4); White Blood Count 3.8 K/mm3 (4.4-11.0)
[2022-02-20 15:48] LABS: Thyroid Stim Hormone (TSH) 2.13 uIU/mL (0.358-3.74)
== END | disposition home or self-care (01) ==
LOC: MTLAB 11:20
PROVIDERS: PCP Family Medicine; Referring Provider Family Medicine; Visit Provider Family Medicine
DX: R53.83 Other fatigue (principal)
CPT/HCPCS: 36415; 84443; 85027

== ENCOUNTER → 2022-05-02 | Outpatient (CLI) | payer MEDICARE, SELFPAY ==
--- NOTE | 2022-05-02 11:51 | RAD_ITS ---
STUDY: X-RAY - LEFT KNEE REASON FOR EXAM: Female, 71 years old. Knee pain. TECHNIQUE: 4 view(s) of the knee. COMPARISON: None. FINDINGS: Osteopenia. Normal visualized distal femur. Normal visualized proximal tibia and fibula. Normal proximal tibiofibular articulation. Normal medial femorotibial compartment. Normal lateral femorotibial compartment. Slight lateral tilt and subluxation of the patella. The soft tissue structures are unremarkable. RAD/Knee 4 or More Views IMPRESSION: Osteopenia with slight lateral tilt and subluxation of the patella. No acute abnormality or erosive changes. Electronically Signed: Adrien Castillo, at 9:45 EST ,
== END | disposition home or self-care (01) ==
PROVIDERS: PCP Family Medicine; Referring Provider Family Medicine; Visit Provider Family Medicine
DX: M25.562 Pain in left knee (principal)
CPT/HCPCS: 73564

== ENCOUNTER → 2022-08-21 | Outpatient (CLI) | payer MEDICARE, SELFPAY ==
--- NOTE | 2022-08-21 10:31 | RAD_ITS ---
INDICATION: pain EXAMINATION/TECHNIQUE: X-RAY - XR Hip Unilateral with Pelvis when performed; 2-3 Views COMPARISON: None. FINDINGS: PELVIC BONES: No displaced fracture, destructive or sclerotic lesions. Note that overlapping bowel shadows may however obscure fine detail. Sacroiliac joints are unremarkable. No widening of the pubic symphysis. HIPS: The articular structures are unremarkable. No displaced fracture seen in this frontal view. Minimal osteophyte formation arising from the greater trochanters greater on the RIGHT than LEFT. SOFT TISSUES: No soft tissue swelling or gas. RAD/HIP, UNI W/ Pelvis 2-3 Views IMPRESSION: No evidence of displaced pelvic or hip fracture, particularly involving the RIGHT hip.. Electronically Signed: Shaheed Flores MD at 19:30 EDT ,
== END | disposition home or self-care (01) ==
LOC: MTRAD 10:31
PROVIDERS: PCP Family Medicine; Referring Provider Nurse Practitioner Family; Visit Provider Nurse Practitioner Family
DX: M25.551 Pain in right hip (principal)
CPT/HCPCS: 73502

== ENCOUNTER → 2022-10-09 | Outpatient (CLI) | payer MEDICARE, SELFPAY ==
[2022-10-09 18:16] LABS: Hepatitis C Antibody Non-Reactive (Nonreactive)
== END | disposition home or self-care (01) ==
LOC: MFPLAB 11:48
PROVIDERS: PCP Family Medicine; Visit Provider Family Medicine
DX: Z11.59 Encounter for screening for other viral diseases (principal)
CPT/HCPCS: 36415; 86803

== ENCOUNTER → 2023-01-14 | Outpatient (CLI) | payer MEDICARE, SELFPAY ==
[2023-01-20 15:08] LABS: Acetylcholine Receptor Binding < 0.03 nmol/L (0.00-0.24)
== END | disposition home or self-care (01) ==
LOC: MTLAB 15:56
PROVIDERS: PCP Family Medicine; Referring Provider Ophthalmology; Visit Provider Ophthalmology
DX: H35.372 Puckering of macula, left eye (principal); H35.3131 Nonexudative age-related macular degeneration, bilateral, early dry stage; H25.811 Combined forms of age-related cataract, right eye; H35.722 Serous detachment of retinal pigment epithelium, left eye; Z96.1 Presence of intraocular lens; H53.2 Diplopia
CPT/HCPCS: 36415; 84238

== ENCOUNTER 2023-03-26 13:30 | Outpatient (RCR) | payer MEDICARE, SELFPAY ==
--- NOTE | 2022-10-29 16:54 | HP.PTEVAL_ITS ---
Patient's Visit Information Visit Information Visit Information: CAESAR YBARRA is a 72 year old F referred to Physical Therapy by Dr. Paulo Aaron MD with a diagnosis of RLE weakness. Date of Evaluation: 10/29/22 Physical Therapist: Thiago Parsons DPT Visit Plan Frequency: 2x /Week Duration: 4 Weeks Plan: Start with [place] hip, ankle DF and quad strengthening. Add in dynamic strengthening. Progress to gym and home HEP as tolerated. Subjective Subjective: Pt. is here today for her initial evaluation with diagnosis of RLE weakness. 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 Pt. reports having increased difficulty since. Pt. reports she works on her strength and it will improve, but tends to get weaker when she stops. Pt. reports no falls, except for tripping over her dogs stairs to her bed previously. pt. denies N/T in either LE. Pt. reports having issues getting up off the floor, she has increased difficulty with feeling weaker after walking longer distances. She would like to get back to recreational walking, kayaking, and gym exercises without limitations. Pain R hip: Pain Intensity (Out of 10): 1 Pain Intensity Range: 0 and 3 Objective Objective: POSTURE: Pt. has fairly normal posture. Pt. has normal wt. shift between BLEs. PALPATION: Normal throughout BLEs, no pain noted. NEURO: Pt. has normal sensation in BLEs. Normal DTR of BLEs. Pt. is able to rise on heels and toes, but is challenging on RLE to raise onto heels ROM: PT. has fairly normal ROM, slight R calf tightness and increased tightness of R hip ER, piriformis. MMT: LLE: ankle 5/5 throughout; knee: ext 34.1#, flexion 28.3#; hip: flexion 24.5#, abd 23.1#, ext: . RLE: ankle 5/5 throughout, except 4/5 with ankle DF; knee: ext 28.1#, flexion 19.4#; hip: flexion 21.3#, abd 14.1#, ext 16.7#. GAIT: Pt. ambulates well without marked deviation. She does has some increased difficulty controlling her R ankle DF eccentrically during initial contact on R side. Worsens with increased fatigue. STAIRS: fairly normal with use of 1 HR, reciprocal pattern noted. Balance/Special Test Scores Functional Gait Assessment Score: 25 % Disability: 16.6700 CATSIB Score (Max score 120 seconds): 120 Lower Extremity Functional Score: 40 TUG Test Time Seconds: 8.1 30 Second Chair Rise Test Seconds: 11 6 Minute Walk Test: 1406 feet Goals Goal 1:: LTG: pt. to be I with HEP for BLE strengthening in both gym and home settings. Goal Time Frame: 4-6 Weeks Goal 2:: LTG: pt. to have symmetrical BLE strength. Goal Time Frame: 4-6 Weeks Goal 3:: LTG: Pt. to complete 14 reps of sit stand 30set rep test indicating increased functional strengthen. 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 Goal Time Frame: 4-6 Weeks Rehabilitation Potential Physical Therapy Diagnosis: Pt. 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 She is overall doing well, but has marked weakness especially in her R LE. this does effect her stability and dynamic balance. Pt. would benefit from PT to address the above l imitations progressing back to all her gym and recreational activities without limitations. Rehabilitation Potential: Excellent Anticipated Interventions Patient/Client Instruction: Educate patient on: Condition, Plan of Care, Risk Factors and Benefits of Fitness Program For the Purpose of:: To facilitate caregiver knowledge, To improve self management, To prevent re-injury, To improve ability to perform tasks related to life management and To improve tolerance to ADL's Therapeutic Exercise to Include: Strength training, Power training, Endurance training, Balance training, In an aquatic setting and Dynamic Lumbar Stabilization For the Purpose of:: To improve muscle performance and motor function, To improve ability to perform ADL's and To improve balance Text: Thank you for the opportunity to evaluate your patient. For Medicare and Medicare HMO plans, please review the plan of care and approve it. It will need to be FAXED BACK to us at [phone] for Medicare purposes. For Medicare only, by signing this I certify the plan of care. Please let me know if there are questions or concerns regarding this plan of care. Physician Signature: Date:
--- NOTE | 2022-12-02 10:55 | HP.PTREVAL ---
Re-Evaluation Intro: Dr. Paulo Aaron MD, It has been my pleasure to treat CAESAR YBARRA over the last 8 visits for RLE weakness. Please see the progress note below for an update on the physical therapy plan of care! Subjective Subjective: Pt. reports no pain today in her R hip. Pt. reports being 50% better overall. She does feel like she is still weak in her R leg. Objective Objective/Function: ROM: R hip ROM is pretty good MMT: RLE: hip; flexion 17.6#, hip abd 25.5#, ext 26.7# LLE: 25.6# flexion, abd 39.0#, ext 28.9 GAIT: Pt. looks pretty good, no major issues noted. STAIRS: Pt. able to complete with out issues. SLS: Pt. able to stand on LLE for 30sec no issues, RLE 12sec Pt. is overall doing better. She still presents with some weakness on the R side. I would like to continue to progress R hip strenthening with focus on home HEP. Pt. has some wt's and bands at home that we can tailor her exercises to. repeated sit to stand testing 13 Plan Plan Plan: Focus on glute med, max, hip flexor and core strengthening. Progress as tolerated. Add in HS stretching as well. Balance/Gait/Functional tests Balance/Special Test Scores Functional Gait Assessment Score: 25 % Disability: 16.6700 CATSIB Score (Max score 120 seconds): 120 Lower Extremity Functional Score: 59 TUG Test Time Seconds: 8.1 Tug Test: <10 sec.=free mobile 30 Second Chair Rise Test Seconds: 13 6 Minute Walk Test: 1406 feet Goals Goals Goal 1:: LTG: pt. to be I with HEP for BLE strengthening in both gym and home settings. Goal Time Frame: 4-6 Weeks Goal Progress: Progressing Goal 2:: LTG: pt. to have symmetrical BLE strength. Goal Time Frame: 4-6 Weeks Goal Progress: Progressing Goal 3:: LTG: Pt. to complete 14 reps of sit stand 30set rep test indicating increased functional strengthen. Goal Time Frame: 4-6 Weeks Goal Progress: Progressing Goal 4:: LTG: Pt. 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 Goal Time Frame: 4-6 Weeks Goal Progress: Progressing Anticipated Interventions Anticipated Interventions Patient/Client Instruction: Educate patient on: Condition, Plan of Care, Risk Factors and Benefits of Fitness Program For the Purpose of:: To facilitate caregiver knowledge, To improve self management, To prevent re-injury, To improve ability to perform tasks related to life management and To improve tolerance to ADL's Therapeutic Exercise to Include: Strength training, Power training, Endurance training, Balance training, In an aquatic setting and Dynamic Lumbar Stabilization For the Purpose of:: To improve muscle performance and motor function, To improve ability to perform ADL's and To improve balance Re-Evaluation Ending Re-evaluation ending: Please do not hesitate to contact me at [phone] by phone or if you have questions or concerns regarding this new plan of care! Sincerely, BLESSING ChinoT
--- NOTE | 2023-01-05 11:42 | HP.PTREVAL_ITS ---
Re-Evaluation Intro: Dr. Paulo Aaron MD, It has been my pleasure to treat CAESAR YBARRA over the last 11 visits for RLE weakness. Please see the progress note below for an update on the physical therapy plan of care! Subjective Subjective: Pt. reports recovering from COVID for the past few weeks. She reports overall weak, but her R hip pain is doing well. She had missed most of this previous stint in PT due to having COVID and feeling weak. Objective Objective/Function: ROM: normal MMT: RLE knee ext: 25.5#, flexion 19.4#; hip: flexion 13.8#, abd: 20.0# LLE: knee ext 29.8#, flexion 17.8#; hip: flexion 19.9#, abd: 30.5# GAIT: Overall normal initially gets more difficulty with DF control during end of initial contact. 30 sec sit to stand rep test: 18 from table. stairs: ascending with 1 HR and descending was more difficult. 6 MWT: 1439 feet. SLS: 25 sec on LLE, 5 sec on RLE. Plan Plan Plan: I am recerting her for another 4 weeks. Pt. just recently had COVID and feels much weaker than previously. I want her to work on RLE strengthening, DF strengthening and SL balance on RLE. Progress endurance and stair stability as well. Balance/Gait/Functional tests Balance/Special Test Scores Functional Gait Assessment Score: 25 % Disability: 16.6700 CATSIB Score (Max score 120 seconds): 120 Lower Extremity Functional Score: 41 TUG Test Time Seconds: 8.1 Tug Test: <10 sec.=free mobile 30 Second Chair Rise Test Seconds: 13 6 Minute Walk Test: 1439feet Goals Goals Goal 1:: LTG: pt. to be I with HEP for BLE strengthening in both gym and home settings. Goal Time Frame: 4-6 Weeks Goal Progress: Progressing Goal 2:: LTG: pt. to have symmetrical BLE strength. Goal Time Frame: 4-6 Weeks Goal Progress: Goal Met Goal 3:: LTG: Pt. to complete 14 reps of sit stand 30set rep test indicating increased functional strengthen. Goal Time Frame: 4-6 Weeks Goal Progress: Progressing Goal 4:: LTG: Pt. 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 Goal Time Frame: 4-6 Weeks Goal Progress: Progressing Anticipated Interventions Anticipated Interventions Patient/Client Instruction: Educate patient on: Condition, Plan of Care, Risk Factors and Benefits of Fitness Program For the Purpose of:: To facilitate caregiver knowledge, To improve self management, To prevent re-injury, To improve ability to perform tasks related to life management and To improve tolerance to ADL's Therapeutic Exercise to Include: Strength training, Power training, Endurance training, Balance training, In an aquatic setting and Dynamic Lumbar Stabilization For the Purpose of:: To improve muscle performance and motor function, To improve ability to perform ADL's and To improve balance Re-Evaluation Ending Re-evaluation ending: Please do not hesitate to contact me at [phone] by phone or if you have questions or concerns regarding this new plan of care! Sincerely, Thiago Parsons DPT
--- NOTE | 2023-02-10 13:57 | HP.PTREVAL_ITS ---
Re-Evaluation Intro: Dr. Paulo Aaron MD, It has been my pleasure to treat CAESAR YBARRA over the last 18 visits for RLE weakness. Please see the progress note below for an update on the physical therapy plan of care! Subjective Subjective: Pt. reports overall improving. She has no pain. She reports being stronger, but still has some R sided weakness compared to L leg. Objective Objective/Function: ROM: normal MMT: RLE knee ext: 31.5#, flexion 24.4#; hip: flexion 25.4#, abd: 25.3# LLE: knee ext 42.8#, flexion 24.8#; hip: flexion 30.0#, abd: 38.1# GAIT: Overall normal initially gets more difficulty with DF control during end of initial contact. 30 sec sit to stand rep test: 15 from standard chair stairs: ascending with 1 HR and descending was more difficult. 6 MWT: 1540 SLS: 30 sec on LLE, 9 sec on RLE. Pt. has made gains in all aspects of her PT. She has improved strength, balance, walking tolerance and stair negotiation. She is still limited with strength from R to L leg and would benefit from further strengthening. I would also like to progress her SLS balance and dynamic balance. Plan Plan Plan: Work on progressing stability in R SLS with progressive external perturbations or activities. Cont. with quad and glute medius strengthening. Progress to I program. Balance/Gait/Functional tests Balance/Special Test Scores Functional Gait Assessment Score: 25 % Disability: 16.6700 CATSIB Score (Max score 120 seconds): 120 Lower Extremity Functional Score: 41 TUG Test Time Seconds: 8.1 Tug Test: <10 sec.=free mobile 30 Second Chair Rise Test Seconds: 13 6 Minute Walk Test: 513 meters Goals Goals Goal 1:: LTG: pt. to be I with HEP for BLE strengthening in both gym and home settings. Goal Time Frame: 4-6 Weeks Goal Progress: Goal Met Goal 2:: LTG: pt. to have symmetrical BLE strength. (not quite symmetrical, but all have improved by at least 5 # of force) Goal Time Frame: 4-6 Weeks Goal Progress: Progressing Goal 3:: LTG: Pt. to complete 14 reps of sit stand 30set rep test indicating increased functional strengthen. 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 Goal Time Frame: 4-6 Weeks Goal Progress: Progressing Anticipated Interventions Anticipated Interventions Patient/Client Instruction: Educate patient on: Condition, Plan of Care, Risk Factors and Benefits of Fitness Program For the Purpose of:: To facilitate caregiver knowledge, To improve self management, To prevent re-injury, To improve ability to perform tasks related to life management and To improve tolerance to ADL's Therapeutic Exercise to Include: Strength training, Power training, Endurance training, Balance training, In an aquatic setting and Dynamic Lumbar Stabilization For the Purpose of:: To improve muscle performance and motor function, To improve ability to perform ADL's and To improve balance Re-Evaluation Ending Re-evaluation ending: Please do not hesitate to contact me at [phone] by phone or if you have questions or concerns regarding this new plan of care! Sincerely, Thiago Parsons DPT
--- NOTE | 2023-03-30 10:47 | HP.PTDCSUM ---
Discharge Summary D/C summary: It has been my pleasure to treat NATHALIE YBARRA referred by Dr. Paulo Aaron MD, with the diagnosis of RLE weakness for a total of 26 visit(s). Discharge Date: 03/26/23 Please see the following information for a summary of their discharge status. Subjective Subjective: Pt. reports overall doing well. No major issues noted. Pt. reports no pain in her R hip. Pt. reports being 95% better overall. She reports being confident in her ability to complete both home and gym exercises independently. Pain R hip: Pain Intensity (Out of 10): 0 Overall Improvement % Improvement: 95 Objective Objective/Function: Pt. has close to symmetrical strength throughout BLEs. Pt. has no pain with any testing this date. ROM: normal bilaterally. 6 MWT: 1459feet stairs: normal with out HR. TU.4sec Goals Goal 1:: LTG: pt. to be I with HEP for BLE strengthening in both gym and home settings. Goal Progress: Goal Met Goal 2:: LTG: pt. to have symmetrical BLE strength. (not quite symmetrical, but all have improved by at least 5 # of force) Goal Progress: Goal Met Goal 3:: LTG: Pt. to complete 14 reps of sit stand 30set rep test indicating increased functional strengthen. Goal Progress: Goal Met Goal 4:: LTG: Pt. be able to mixing machine tender cork rod SLS on RLE for 30sec indicating increased stability of RLE. Goal Progress: Goal Met Plan Plan: Nathalie with be DC to HEP. She is I with gym exercises and plans to continue in gym setting. Pt. given HEP with parameters. D/C Information Discharge Comments: Pt. was treated for her RLE weakness and pain. Pt. is doing much better. She does have a bit of foot slap on R side especially with increased walking. He does have good foot clearance with all gait. Pt. to be DC to HEP at this point in time. d/c sentence: If there are questions or concerns regarding this patient's physical therapy, please feel free to call me at [phone]. Thank you for the referral of this patient. Sincerely, Thiago Hyatt Sipos, DPT Balance/Gait/Functional tests Balance/Special Test Scores Functional Gait Assessment Score: 25 % Disability: 16.6700 CATSIB Score (Max score 120 seconds): 120 Lower Extremity Functional Score: 64 TUG Test Time Seconds: 7.4 Tug Test: <10 sec.=free mobile 30 Second Chair Rise Test Seconds: 13 6 Minute Walk Test: 1459 feet no AD, no breaks Improvement % Improvement: 95
== END 2023-03-26 19:00 | disposition home or self-care (01) ==
LOC: PT 13:30
PROVIDERS: PCP Family Medicine; Referring Provider Psychiatry & Neurology Sleep Medicine; Visit Provider Psychiatry & Neurology Sleep Medicine
DX: R29.898 Other symptoms and signs involving the musculoskeletal system (principal)
CPT/HCPCS: 97110; 97161; 97164

== ENCOUNTER → 2024-09-20 | Outpatient (CLI) | payer MEDICARE, SELFPAY ==
--- NOTE | 2024-09-20 13:23 | RAD_ITS ---
EXAM: XR Right Foot Complete, 3 or More Views CLINICAL INDICATION: CHRONIC PAIN TECHNIQUE: Frontal, lateral and oblique views of the right foot. COMPARISON: No relevant prior studies available. FINDINGS: BONES/JOINTS: Moderate degenerative changes of the distal interphalangeal joints. Mild degenerative change of the intertarsal joints. No acute fracture. No dislocation. SOFT TISSUES: Soft tissue swelling. No radiopaque foreign body. RAD/Foot min 3 Views IMPRESSION: 1. Soft tissue swelling. 2. Degenerative changes as above. Reading Location: [facility]
== END | disposition home or self-care (01) ==
PROVIDERS: PCP Family Medicine; Referring Provider Family Medicine; Visit Provider Family Medicine
DX: M79.671 Pain in right foot (principal); G89.29 Other chronic pain
CPT/HCPCS: 73630

== ENCOUNTER → 2025-01-23 | Outpatient (CLI) | payer MEDICARE, SELFPAY ==
--- NOTE | 2025-01-23 14:25 | RAD_ITS ---
PROCEDURE: FOOT MIN 3 VIEWS 01/23/2025 REASON FOR EXAM: PAIN, TOE TECHNIQUE: Procedure Code: RADFO Modality: DX Procedure: FOOT MIN 3 VIEWS Right foot three views COMPARISON: September 20, 2024 FINDINGS: No fracture or dislocation is identified. Joint spaces are maintained. There is no visible radiopaque foreign body or soft tissue abnormality. Mineralization is normal. RAD/Foot min 3 Views IMPRESSION: No fracture or dislocation is identified. Reading Location: [facility]
== END | disposition home or self-care (01) ==
LOC: MTRAD 14:22
PROVIDERS: PCP Family Medicine; Referring Provider Family Medicine; Visit Provider Family Medicine
DX: M79.674 Pain in right toe(s) (principal)
CPT/HCPCS: 73630